=== PATIENT | female | born 1980 | race Caucasian/White ===

== ENCOUNTER → 2016-07-26 | Outpatient (CLI) | payer BC ==
[~2016-07-26] MED LIST: /CELE20CA PO; /CIPR75TA; /DULO30CA PO; /ESOM40CA PO; /LOR25TA PO; ALBUTEROL LIQ INH; AMIT25TA PO; AMRIX; CYMB1CAP PO; DEXILANT PO; FIORTAB PO; FLAG500T; FLECTOR1.3 EXT; HYDR25TA6 PO; HYOSCYAMINE SULFATE OR; HYOSPOW PO; IBUP600T OR; KEPP250T PO; KLOR10TA PO; LUPRON INJECTION; MAXA10TA17 OR; MAXALT; METH-442 PO; MIRALEX PO; MOBI15TA PO; MULTIVIT PO; NEUR600T PO; OXYBPOW10 PO; PAME50CA PO; PAXI10TA; POTA20EL PO; PREG50CA; PREG50CA PO; PRIL40CA PO; PROP60TA; PROP80CA OR; PROV90AE; PROZ20CA11 PO; TOPI50TA; TOPI50TA OR; VICO5TAB; VIT D 2000 PO; VITAMIN D50000 UNT; ZANTTAB9 PO; ZONI25CA2 PO; [UNRECOGNIZED DRUG - CODE] OR; [UNRECOGNIZED DRUG - OTHER] PO; [UNRECOGNIZED DRUG - OTHER] PO; bentyl OR; detrol OR; maxalt OR; vitamin D OR
[2016-07-26 13:03] LABS: ANION GAP 5 MEQ/L (8-16); BLOOD UREA NITROGEN 9 MG/DL (7-18); CALCIUM LEVEL 8.8 MG/DL (8.5-10.1); CARBON DIOXIDE LEVEL 29 MEQ/L (21-32); CHLORIDE LEVEL 105 MEQ/L (98-107); CHOLESTEROL LEVEL 219 MG/DL (<200); CREATININE FOR GFR 0.84 MG/DL (0.55-1.02); GLOMERULAR FILTRATION RATE > 60.0 (>60); GLUCOSE, FASTING 95 MG/DL (70-105); POTASSIUM SERUM 3.9 MEQ/L (3.5-5.1); SODIUM LEVEL 139 MEQ/L (136-145); TRIGLYCERIDES LEVEL 193 MG/DL (<150)
== END ==
LOC: M LAB 11:55
PROVIDERS: ATTEND Physician Assistant Medical
DX: E78.5 Hyperlipidemia, unspecified (principal); E55.9 Vitamin D deficiency, unspecified; I10 Essential (primary) hypertension

== ENCOUNTER → 2016-09-30 | Day surgery (SDC) | payer BC ==
[~2016-09-30] VITALS: Ht 157.5 cm; Wt 83.9 kg
[~2016-09-30] MED LIST changes: +ACETAMINOPHEN 650 MG SUPP As Ordered ONE; +ACETAMINOPHEN 650 MG SUPP PR ONE; +CIPR500T3 PO; +DITR1TAB2 PO; +EPIP0.3I2 IM; +FIOR1CAP PO; +IBUP80TA PO; +IBUPROFEN 800 MG TAB PO SCH; +LIDOCAINE 2% INJ 100 MG/5 ML SDV (FOR ANES.) As Ordered ONE; +LIDOCAINE W/EPINEPHRINE 1% 20ML VIAL As Ordered ONE; +LR 1,000 ML IV ONE; +LR 1,000 ML IV SCH; +MACR100C3 PO; +METOCLOPRAMIDE INJ 10MG/2ML VIAL (J2765) IV PRN; +METR500T10 PO; +MIDAZOLAM INJ 2 MG/2 ML VIAL (J2250) As Ordered ONE; +MORPHINE 2 MG/ML 1ML SYRINGE IV PRN; +NITROFURANTOIN (MACROBID) 100 MG CAP PO ONE; +NORCOTAB PO; +ONDANSETRON 4MG/2ML VIAL (J2405) As Ordered ONE; +ONDANSETRON 4MG/2ML VIAL (J2405) IV PRN; +PERCOCET 5MG/325MG TAB PO PRN; +PROA1AER INH; +PROPOFOL 200 MG/20 ML VIAL As Ordered ONE; +PROPOFOL 500 MG/50 ML VIAL As Ordered ONE; +RANI150T PO; +ROCURONIUM BROMIDE 50 MG/5 ML VIAL As Ordered ONE; +TIZA2CAP3 PO; +VITA100037 PO; +ePHEDrine SULFATE 25 MG/5 ML(5MG/ML) SYRINGE As Ordered ONE; +fentaNYL 100 MCG/2 ML INJECTION (J3010) As Ordered ONE; +fentaNYL 100 MCG/2 ML INJECTION (J3010) IV PRN
[2016-09-30 10:10] LABS: MEAN CORPUSCULAR HEMOGLOBIN 28.2 pg (27.0-33.0); MEAN CORPUSCULAR HGB CONC 33.4 g/dl (32.0-36.5); MEAN CORPUSCULAR VOLUME 84.4 fl (80.0-96.0); RED CELL DISTRIBUTION WIDTH 13.5 % (11.5-14.5); WHITE BLOOD COUNT 8.1 K/mm3 (4.0-10.0)
[2016-09-30 10:21] LABS: ANION GAP 6 MEQ/L (8-16); BLOOD UREA NITROGEN 6 MG/DL (7-18); CALCIUM LEVEL 9.1 MG/DL (8.5-10.1); CARBON DIOXIDE LEVEL 29 MEQ/L (21-32); CHLORIDE LEVEL 106 MEQ/L (98-107); CREATININE FOR GFR 0.86 MG/DL (0.55-1.02); GLOMERULAR FILTRATION RATE > 60.0 (>60); GLUCOSE, FASTING 99 MG/DL (70-105); POTASSIUM SERUM 4.2 MEQ/L (3.5-5.1); SODIUM LEVEL 141 MEQ/L (136-145)
[2016-09-30] MEDS: PERCOCET 5MG/325MG TAB PO PRN ×4 (14:25→20:30)
[2016-09-30 21:00] VITALS: BP 106/64
--- NOTE | 2016-09-30 21:40 | RO ---
DATE OF PROCEDURE: 09/30/2016 Estefani is a 36-year-old female with a history of stress urinary incontinence. After counseling a decision was made for tension-free vaginal taping via an obturator approach and a cystoscopy. PREOPERATIVE DIAGNOSIS: Stress urinary incontinence. POSTOPERATIVE DIAGNOSIS: Stress urinary incontinence. PROCEDURE: 1. Tension-free vaginal taping via an obturator approach. 2. Cystoscopy. SURGEON: Bry Giron DO RESIDENTIAL GLAZIER: ANESTHESIA: Spinal. COMPLICATIONS: None ESTIMATED BLOOD LOSS: Less than 20 mL. DESCRIPTION OF PROCEDURE: After obtaining informed consent the patient was taken to the operating room where spinal anesthetic was found to be adequate. She was then draped and prepped in the usual sterile fashion in dorsal lithotomy position. At this point, a Camara catheter was placed in the bladder for drainage. We then placed a line at the level of the urethral meatus and the second line parallel to that line 2 cm above the line was made and exit point for the TVT-O device was marked 2 cm away from the groin area. It was done in similar fashion. At this point, 1% lidocaine diluted with saline was used for pain control and hydrodissection at the site. We then placed two Allis clamp approximately 2-3 cm below the urethral meatus. Then, the area was infiltrated with lidocaine. A 5 mm incision was made using Metzenbaum at a 45 degrees angle. The obturator foramen was punctured. The wing guide of the TVT-O device was inserted and the TVT-O device on the right side was inserted and exited at the predetermined lilibeth. A cystoscopy was then performed. No evidence of any bladder injury or urethral injury noted. At this point, the introducer was removed. The opposite side was done in similar fashion after draining the bladder. The bladder was then retrograde filled to approximately 300 to 400 mL of normal saline. The tension-free vaginal tape was adjusted with the patient coughing. After proper results was noted, the plastic sheath on the tension-free vaginal tape was removed and the excess tape was cut away. This was done on both sides. The vaginal mucosa incision was closed with a [id number] of #2-0 Vicryl suture and the exit point at the lateral side was closed using Dermabond. Good hemostasis noted. Bladder completely emptied out and the patient was transferred to the recovery room in stable condition.
== END | disposition home or self-care (01) ==
LOC: M SDC 09:39
PROVIDERS: ATTEND Obstetrics & Gynecology
DX: N39.3 Stress incontinence (female) (male) (principal); K44.9 Diaphragmatic hernia without obstruction or gangrene; K21.9 Gastro-esophageal reflux disease without esophagitis; M79.7 Fibromyalgia; J45.909 Unspecified asthma, uncomplicated; Z79.899 Other long term (current) drug therapy; Z88.0 Allergy status to penicillin; Z91.040 Latex allergy status; E73.9 Lactose intolerance, unspecified
CPT/HCPCS: 36415; 57288; 80048; 85027; 86850; 86900; 86901; C1771; J2250; J2405; J3010

== ENCOUNTER 2016-10-07 12:27 | Emergency (ER) | payer BC ==
[~2016-10-07] VITALS: Ht 157.5 cm; Wt 81.6 kg
[~2016-10-07 12:27] MED LIST changes: -ACETAMINOPHEN 650 MG SUPP As Ordered ONE; -ACETAMINOPHEN 650 MG SUPP PR ONE; -CIPR500T3 PO; -IBUPROFEN 800 MG TAB PO SCH; -LIDOCAINE 2% INJ 100 MG/5 ML SDV (FOR ANES.) As Ordered ONE; -LIDOCAINE W/EPINEPHRINE 1% 20ML VIAL As Ordered ONE; -LR 1,000 ML IV ONE; -LR 1,000 ML IV SCH; -METOCLOPRAMIDE INJ 10MG/2ML VIAL (J2765) IV PRN; -METR500T10 PO; -MIDAZOLAM INJ 2 MG/2 ML VIAL (J2250) As Ordered ONE; -MORPHINE 2 MG/ML 1ML SYRINGE IV PRN; -NITROFURANTOIN (MACROBID) 100 MG CAP PO ONE; -NORCOTAB PO; -ONDANSETRON 4MG/2ML VIAL (J2405) As Ordered ONE; -ONDANSETRON 4MG/2ML VIAL (J2405) IV PRN; -PERCOCET 5MG/325MG TAB PO PRN; -PROPOFOL 200 MG/20 ML VIAL As Ordered ONE; -PROPOFOL 500 MG/50 ML VIAL As Ordered ONE; -ROCURONIUM BROMIDE 50 MG/5 ML VIAL As Ordered ONE; -ePHEDrine SULFATE 25 MG/5 ML(5MG/ML) SYRINGE As Ordered ONE; -fentaNYL 100 MCG/2 ML INJECTION (J3010) As Ordered ONE; -fentaNYL 100 MCG/2 ML INJECTION (J3010) IV PRN
[2016-10-07] MEDS ORDERED: ONDANSETRON 4MG/2ML VIAL (J2405) IV ONE (13:45)
[2016-10-07] MEDS ORDERED: NS 1,000 ML IV ONE (13:45)
--- NOTE | 2016-10-07 13:50 | ED PDOC ---
Post-Departure Follow-Up Patient presents to the ED for evaluation of LLQ abdominal pain that has been ongoing since her bladder suspension surgery last Monday. She states that she first noted the pain in her left hip and was told that it was due to being in stirrups for the surgery. The pain then moved to her LLQ, where it has been ever since. She states that the pain has gotten progressively worse and is now diffuse (but still the most severe in LLQ). She was seen by Dr Giron this morning, a UA was obtained and she was told it was negative, he then sent her to the ED for further evaluation. The remainder of her H&P and ROS are as noted on her T-sheet. IV saline lock established and liter NS bolus ordered for hydration. CBC, BMP, UA, lactic acid ordered for evaluation. A flat and upright abdomen x-ray was ordered to evaluate for free air. If negative a CT abd/pelvis, w/ IV and PO contrast will be ordered. Morphine and Zofran ordered for pain and nausea control. SHAWNEE PARKER. [facility] Oct 07, 2016 13:50
[2016-10-07] MEDS: MORPHINE 4 MG/ML 1ML SYRINGE IV PRN ×2 (14:05→14:42)
[2016-10-07 14:12] LABS: BASO # 0.1 K/mm3 (0.0-0.2); BASO % 0.5 % (0.0-1.0); EOS # 0.4 K/mm3 (0.0-0.50); EOS % 2.2 % (0.0-3.0); LARGE UNSTAINED CELL # 0.2 K/mm3 (0.0-0.4); LARGE UNSTAINED CELL % 1.3 % (0.0-4.0); LYMPH # 2.4 K/mm3 (1.5-4.5); LYMPH % 14.9 % (24.0-44.0); MEAN CORPUSCULAR HEMOGLOBIN 27.9 pg (27.0-33.0); MEAN CORPUSCULAR VOLUME 84.4 fl (80.0-96.0); MONO # 0.7 K/mm3 (0.0-0.8); MONO % 4.2 % (0.0-5.0); NEUTROPHILS # 12.3 K/mm3 (1.8-7.7); NEUTROPHILS % 76.9 % (36.0-66.0); PLATELET COUNT, AUTOMATED 301 k/mm3 (150-450); RED CELL DISTRIBUTION WIDTH 13.2 % (11.5-14.5)
[2016-10-07 14:27] LABS: ANION GAP 6 MEQ/L (8-16); BLOOD UREA NITROGEN 10 MG/DL (7-18); CALCIUM LEVEL 9.3 MG/DL (8.5-10.1); CARBON DIOXIDE LEVEL 27 MEQ/L (21-32); CHLORIDE LEVEL 104 MEQ/L (98-107); CREATININE FOR GFR 0.89 MG/DL (0.55-1.02); GLOMERULAR FILTRATION RATE > 60.0 (>60); GLUCOSE, FASTING 88 MG/DL (70-105); POTASSIUM SERUM 3.6 MEQ/L (3.5-5.1); SODIUM LEVEL 137 MEQ/L (136-145)
--- NOTE | 2016-10-07 14:58 | REP ---
ABDOMEN, FLAT UPRIGHT AP CHEST, FOUR VIEWS: HISTORY: Abdominal pain. Air is present in small and large intestine. There are no air fluid levels or dilated loops of intestine. There is no pneumoperitoneum. Surgical clips are present in the right upper quadrant. The lungs are clear. IMPRESSION: Nonspecific bowel gas pattern. Signed by Jasvir Reynolds MD 10/07/2016 03:04 P
--- NOTE | 2016-10-07 15:11 | ED PDOC ---
Post-Departure Follow-Up No free air noted on KUB/upright; CT abd/pelvis with IV/PO contrast ordered for further evaluation SHAWNEE PARKER SOFTWARE COMPUTER SPECIALIST Oct 07, 2016 15:11
[2016-10-07] MEDS ORDERED: GASTROGRAFIN SOLUTION 30ML (Q9963) PO ONE ×2 (15:30→16:00)
--- NOTE | 2016-10-07 15:30 | ED PDOC ---
Post-Departure Follow-Up Patient states her pain is tolerable at this time. Drinking her oral contrast and tolerating it. SHAWNEE PARKER. [facility] Oct 07, 2016 15:30
[2016-10-07] MEDS ORDERED: ISOVUE-370 76% 100ML VIAL (Q9967) As Ordered ONE (16:42)
--- NOTE | 2016-10-07 17:47 | REP ---
CT of the abdomen and pelvis with IV and oral contrast: Comparison is 01/17/2013. The patient has history of diverticulitis, cholecystectomy, bladder. Procedure, partial hysterectomy and umbilical hernia. The visualized lung mejia are unremarkable. The hepatic parenchyma is homogeneous and unremarkable. There are surgical clips in the gallbladder fossa. The pancreas and spleen are normal size and unremarkable. The adrenals and kidneys are unremarkable. The abdominal aorta is unremarkable. There is no bowel distension. The bowel contrast has reached proximal small bowel loops. Pelvis: The appendix has a normal appearance. The vaginal cuff is unremarkable. The ovaries are unchanged from a prior CT of the pelvis of 03/29/2010. There is no ascites. There are diverticula in the sigmoid colon. There is pericolonic inflammation of the sigmoid colon without pericolonic abscess compatible with diverticulitis. There is no ascites or adenopathy. Impression: Findings are compatible with sigmoid colon diverticulitis. There is no pneumoperitoneum, ascites or adenopathy. Signed by Malcom Simms MD 10/07/2016 05:39 P
--- NOTE | 2016-10-07 17:52 | ED PDOC ---
Post-Departure Follow-Up Discussed CT results and discharge plan with the patient including prescriptions , pain management, hydration, follow-up and worrisome signs to return to the ED for. Questions answered. Patient states understanding to the instructions. SHAWNEE PARKER. [employer] Oct 07, 2016 17:52
[2016-10-07] MEDS ORDERED: NORCOTAB PO (17:58)
[2016-10-07] MEDS ORDERED: METR500T10 PO (17:58)
[2016-10-07] MEDS ORDERED: CIPR500T3 PO (17:58)
[2016-10-07] MEDS ORDERED: metroNIDAZOLE (FLAGYL) 500 MG TAB PO ONE (18:00)
[2016-10-07] MEDS ORDERED: CIPROFLOXACIN 500 MG TAB PO ONE (18:00)
[2016-10-07 18:01] VITALS: BP 114/60
== END 2016-10-07 18:23 | disposition home or self-care (01) ==
LOC: M ED 14:17
DX: K57.90 Diverticulosis of intestine, part unspecified, without perforation or abscess without bleeding (principal); I10 Essential (primary) hypertension; E78.5 Hyperlipidemia, unspecified; K58.9 Irritable bowel syndrome, unspecified; K44.9 Diaphragmatic hernia without obstruction or gangrene; M79.7 Fibromyalgia; N80.9 Endometriosis, unspecified; E28.2 Polycystic ovarian syndrome; E04.1 Nontoxic single thyroid nodule; Z90.79 Acquired absence of other genital organ(s); Z87.448 Personal history of other diseases of urinary system; Z79.899 Other long term (current) drug therapy; Z88.0 Allergy status to penicillin; Z88.5 Allergy status to narcotic agent; Z91.040 Latex allergy status; Z91.09 Other allergy status, other than to drugs and biological substances; Z91.011 Allergy to milk products
CPT/HCPCS: 74022; 74177; 80048; 81001; 83605; 85025; 96361; 96374; 96375; 96376; 99284; J2405; Q9963; Q9967

== ENCOUNTER 2017-04-05 09:30 | Day surgery (SDC) | payer BC ==
[~2017-04-05] VITALS: Ht 157.5 cm; Wt 78.0 kg
[~2017-04-05 09:30] MED LIST changes: +CIPR500T3 PO; -MACR100C3 PO; +MACR100C43 PO; +METR1TAB66 PO; +NORCOTAB PO; -PROA1AER INH; +PROAAER10 INH; -VITA100037 PO; +VITA100067 PO
[2017-04-05] MEDS ORDERED: NS 1,000 ML IV ONE (10:15)
[2017-04-05] MEDS ORDERED: LIDOCAINE 2% INJ 100 MG/5 ML SDV (FOR ANES.) As Ordered ONE (10:29)
[2017-04-05] MEDS ORDERED: PROPOFOL 200 MG/20 ML VIAL As Ordered ONE (10:29)
--- NOTE | 2017-04-05 10:53 | ROOR ---
Patient Name: Alexandrea Posadas Procedure Date: 04/05/2017 10:21 AM Date of : 1980 Age: 36 Room: [facility] Gender: Female Note Status: Finalized Procedure: Colonoscopy Indications: Abdominal pain in the left lower quadrant, Abnormal CT of the GI tract, Suspected diverticulitis Providers: Hebert Wills MD Referring MD: RANDY HARE MD Requesting Provider: Medicines: Monitored Anesthesia Care Complications: No immediate complications. Procedure: Pre-Anesthesia Assessment: - Prior to the procedure, a History and Physical was performed, and patient medications and allergies were reviewed. The patient is competent. The risks and benefits of the procedure and the sedation options and risks were discussed with the patient. All questions were answered and informed consent was obtained. Patient identification and proposed procedure were verified by the physician, the nurse and the anesthesiologist in the endoscopy suite. Mental Status Examination: alert and oriented. Airway Examination: normal oropharyngeal airway and neck mobility. Respiratory Examination: clear to auscultation. CV Examination: normal. Prophylactic Antibiotics: The patient does not require prophylactic antibiotics. Prior Anticoagulants: The patient has taken no previous anticoagulant or antiplatelet agents. ASA Grade Assessment: II - A patient with mild systemic disease. After reviewing the risks and benefits, the patient was deemed in satisfactory condition to undergo the procedure. The anesthesia plan was to use monitored anesthesia care (MAC). Immediately prior to administration of medications, the patient was re-assessed for adequacy to receive sedatives. The heart rate, respiratory rate, oxygen saturations, blood pressure, adequacy of pulmonary ventilation, and response to care were monitored throughout the procedure. The physical status of the patient was re-assessed after the procedure. The Colonoscope was introduced through the anus and advanced to the terminal ileum, with identification of the appendiceal orifice and IC valve. The colonoscopy was performed without difficulty. The patient tolerated the procedure well. The quality of the bowel preparation was adequate to identify polyps. Findings: The perianal and digital rectal examinations were normal. Scattered small-mouthed diverticula were found in the sigmoid colon, descending colon, transverse colon, ascending colon and cecum. No evident mucosal inflammation, diverticular inflammation. The entire examined colon appeared normal on direct and retroflexion views. Impression: - Moderate diverticulosis in the sigmoid colon, in the descending colon, in the transverse colon, in the ascending colon and in the cecum. No evident mucosal inflammation, diverticular inflammation. - The entire examined colon is normal on direct and retroflexion views. - No specimens collected. Recommendation: - Discharge patient to home (ambulatory). - High fiber diet indefinitely. - Use original regular Metamucil one teaspoon PO BID indefinitely. Hebert Wills MD Hebert Wills MD 04/05/2017 10:53:09 AM This report has been signed electronically. Number of Addenda: 0 Note Initiated On: 04/05/2017 10:21 AM Estimated Blood Loss: Estimated blood loss: none.
[2017-04-05 11:25] VITALS: BP 129/88
== END 2017-04-05 11:52 | disposition home or self-care (01) ==
LOC: M OPP 09:30
PROVIDERS: ATTEND Surgery
DX: R93.3 Abnormal findings on diagnostic imaging of other parts of digestive tract (principal); R10.32 Left lower quadrant pain; K57.32 Diverticulitis of large intestine without perforation or abscess without bleeding; R19.5 Other fecal abnormalities; R11.2 Nausea with vomiting, unspecified; K64.8 Other hemorrhoids; K57.30 Diverticulosis of large intestine without perforation or abscess without bleeding; R00.8 Other abnormalities of heart beat; I10 Essential (primary) hypertension; E78.5 Hyperlipidemia, unspecified; R01.1 Cardiac murmur, unspecified; E04.1 Nontoxic single thyroid nodule; Z87.19 Personal history of other diseases of the digestive system; K44.9 Diaphragmatic hernia without obstruction or gangrene; K58.9 Irritable bowel syndrome, unspecified; R12 Heartburn; K21.9 Gastro-esophageal reflux disease without esophagitis; M51.9 Unspecified thoracic, thoracolumbar and lumbosacral intervertebral disc disorder; M54.30 Sciatica, unspecified side; M79.7 Fibromyalgia; G43.909 Migraine, unspecified, not intractable, without status migrainosus; R56.9 Unspecified convulsions; J45.909 Unspecified asthma, uncomplicated; R06.02 Shortness of breath; R32 Unspecified urinary incontinence; Z88.0 Allergy status to penicillin; Z88.8 Allergy status to other drugs, medicaments and biological substances; Z91.040 Latex allergy status; Z91.048 Other nonmedicinal substance allergy status; Z91.011 Allergy to milk products; Z79.899 Other long term (current) drug therapy; Z80.51 Family history of malignant neoplasm of kidney

== ENCOUNTER → 2017-06-27 | Outpatient (CLI) | payer OTHER | LOC: M PAIN 11:15 | DX: M54.40 Lumbago with sciatica, unspecified side (principal); M53.3 Sacrococcygeal disorders, not elsewhere classified; J45.909 Unspecified asthma, uncomplicated; G43.909 Migraine, unspecified, not intractable, without status migrainosus; T82.0 Mechanical complication of heart valve prosthesis; R01.1 Cardiac murmur, unspecified; Z79.899 Other long term (current) drug therapy; Z79.891 Long term (current) use of opiate analgesic; Z91.040 Latex allergy status; Z91.048 Other nonmedicinal substance allergy status; Z88.0 Allergy status to penicillin; Z88.8 Allergy status to other drugs, medicaments and biological substances | CPT/HCPCS: G0463 ==

== ENCOUNTER → 2017-07-26 | Outpatient (CLI) | payer OTHER | LOC: M PAIN 08:45 | DX: M54.40 Lumbago with sciatica, unspecified side (principal); M53.3 Sacrococcygeal disorders, not elsewhere classified; G89.29 Other chronic pain; R01.1 Cardiac murmur, unspecified; E78.00 Pure hypercholesterolemia, unspecified; J45.909 Unspecified asthma, uncomplicated; G43.909 Migraine, unspecified, not intractable, without status migrainosus; M79.7 Fibromyalgia; Z79.899 Other long term (current) drug therapy; Z88.0 Allergy status to penicillin; Z88.5 Allergy status to narcotic agent; Z91.040 Latex allergy status; Z91.09 Other allergy status, other than to drugs and biological substances | CPT/HCPCS: G0463 ==

== ENCOUNTER → 2017-08-31 | Outpatient (CLI) | payer BC ==
[2017-08-31 10:59] LABS: BASO % 0.5 % (0.0-1.0); EOS # 0.2 10^3/uL (0.0-0.50); EOS % 1.9 % (0.0-3.0); HEMATOCRIT 48.2 % (36.0-47.0); HEMOGLOBIN 15.4 g/dl (12.0-15.5); IMMATURE GRANULOCYTE % 0.2 % (0-3.0); MEAN CORPUSCULAR HEMOGLOBIN 26.8 pg (27.0-33.0); MONO # 0.4 10^3/uL (0.0-0.8); NEUTROPHILS # 5.7 10^3/uL (1.8-7.7); NEUTROPHILS % 68.4 % (36.0-66.0); PLATELET COUNT, AUTOMATED 253 10^3/uL (150-450); RED BLOOD COUNT 5.74 10^6/uL (4.00-5.40); RED CELL DISTRIBUTION WIDTH 13.2 % (11.5-14.5); WHITE BLOOD COUNT 8.4 10^3/uL (4.0-10.0)
[2017-08-31 11:26] LABS: ANION GAP 6 MEQ/L (8-16); BLOOD UREA NITROGEN 10 MG/DL (7-18); CALCIUM LEVEL 9.2 MG/DL (8.5-10.1); CARBON DIOXIDE LEVEL 30 MEQ/L (21-32); CHLORIDE LEVEL 106 MEQ/L (98-107); CREATININE FOR GFR 0.91 MG/DL (0.55-1.30); FREE T3 2.9 PG/ML (2.2-4.0); FREE T4 1.17 NG/DL (0.76-1.46); GLOMERULAR FILTRATION RATE > 60.0 (>60); GLUCOSE, FASTING 88 MG/DL (70-100); MAGNESIUM LEVEL 2.4 MG/DL (1.8-2.4); POTASSIUM SERUM 4.4 MEQ/L (3.5-5.1); SODIUM LEVEL 142 MEQ/L (136-145)
[2017-09-01 08:53] LABS: THYROGLOBULIN ANTIBODY 29.6 U/ML (<60.0); THYROID PEROXIDASE ANTIBODY 42.4 U/ML (<60.0)
[2017-09-02 00:07] LABS: THYROID BINDING GLOBULIN 20 ug/mL (13-39)
== END ==
LOC: M LAB 09:50
DX: R00.2 Palpitations (principal)
CPT/HCPCS: 83735

== ENCOUNTER → 2017-09-06 | Outpatient (CLI) | payer OTHER | LOC: M PAIN 09:15 | DX: M54.40 Lumbago with sciatica, unspecified side (principal); M53.3 Sacrococcygeal disorders, not elsewhere classified; G89.29 Other chronic pain; R01.1 Cardiac murmur, unspecified; E78.00 Pure hypercholesterolemia, unspecified; J45.909 Unspecified asthma, uncomplicated; G43.909 Migraine, unspecified, not intractable, without status migrainosus; M79.7 Fibromyalgia; Z79.899 Other long term (current) drug therapy; Z88.0 Allergy status to penicillin; Z88.5 Allergy status to narcotic agent; Z91.040 Latex allergy status; Z91.09 Other allergy status, other than to drugs and biological substances | CPT/HCPCS: G0463 ==

== ENCOUNTER → 2017-10-23 | Outpatient (REF) | payer OTHER ==
[2017-10-23 19:32] LABS: APPEARANCE, URINE HAZY (CLEAR); BACTERIA, URINE AUTO NEGATIVE (NEGATIVE); BILIRUBIN, URINE AUTO NEGATIVE (NEGATIVE); BLOOD, URINE BLOOD NEGATIVE (NEGATIVE); COLOR, URINE YELLOW (YELLOW); GLUCOSE, URINE (UA) AUTO NEGATIVE (NEGATIVE); KETONE, URINE AUTO NEGATIVE (NEGATIVE); LEUKOCYTE ESTERASE, URINE AUTO 2+ (NEGATIVE); MUCUS, URINE SMALL (NEGATIVE); NITRITE, URINE AUTO NEGATIVE (NEGATIVE); PROTEIN, URINE AUTO NEGATIVE (NEGATIVE); RBC, URINE AUTO 1 /HPF (0-3); SPECIFIC GRAVITY URINE AUTO 1.024 (1.002-1.035); SQUAMOUS EPITHELIAL CELL UR AU 3 /HPF (0-6); UROBILINOGEN, URINE AUTO 0.2 mg/dL (0.0-2.0); WBC, URINE AUTO 30 /HPF (0-3)
== END ==
LOC: M LAB REF 16:40
DX: N39.0 Urinary tract infection, site not specified (principal)

== ENCOUNTER → 2017-12-26 | Outpatient (CLI) | payer OTHER ==
[~2017-12-26] MED LIST changes: -/CELE20CA PO; -/CIPR75TA; -/DULO30CA PO; -/ESOM40CA PO; -/LOR25TA PO; -ALBUTEROL LIQ INH; -AMIT25TA PO; -AMRIX; -CIPR500T3 PO; -CYMB1CAP PO; -DEXILANT PO; -DITR1TAB2 PO; -EPIP0.3I2 IM; -FIOR1CAP PO; -FIORTAB PO; -FLAG500T; -FLECTOR1.3 EXT; -HYDR25TA6 PO; -HYOSCYAMINE SULFATE OR; -HYOSPOW PO; -IBUP600T OR; -IBUP80TA PO; +ISOVUE-M 300 61% 15ML VIAL (Q9967) As Ordered; -KEPP250T PO; -KLOR10TA PO; +LIDOCAINE 1% SDV INJ 30 ML VIAL As Ordered; -LUPRON INJECTION; -MACR100C43 PO; -MAXA10TA17 OR; -MAXALT; -METH-442 PO; -METR1TAB66 PO; -MIRALEX PO; -MOBI15TA PO; -MULTIVIT PO; -NEUR600T PO; -NORCOTAB PO; -OXYBPOW10 PO; -PAME50CA PO; -PAXI10TA; -POTA20EL PO; -PREG50CA; -PREG50CA PO; -PRIL40CA PO; -PROAAER10 INH; -PROP60TA; -PROP80CA OR; -PROV90AE; -PROZ20CA11 PO; -RANI150T PO; -TIZA2CAP3 PO; -TOPI50TA; -TOPI50TA OR; -VICO5TAB; -VIT D 2000 PO; -VITA100067 PO; -VITAMIN D50000 UNT; -ZANTTAB9 PO; -ZONI25CA2 PO; -[UNRECOGNIZED DRUG - CODE] OR; -[UNRECOGNIZED DRUG - OTHER] PO; -[UNRECOGNIZED DRUG - OTHER] PO; -bentyl OR; -detrol OR; +diazePAM 5 MG TAB As Ordered; -maxalt OR; +methylPREDNISolone SUSP 40 MG/ML (DEPO-medrol) VIAL (J1030) As Ordered; +oxyCODONE 5MG TAB As Ordered; -vitamin D OR
== END ==
LOC: M PAIN 08:45
DX: M51.16 Intervertebral disc disorders with radiculopathy, lumbar region (principal); R01.1 Cardiac murmur, unspecified; E78.00 Pure hypercholesterolemia, unspecified; J45.909 Unspecified asthma, uncomplicated; G43.909 Migraine, unspecified, not intractable, without status migrainosus; M79.7 Fibromyalgia; M54.2 Cervicalgia; Z79.891 Long term (current) use of opiate analgesic; Z79.899 Other long term (current) drug therapy; Z88.0 Allergy status to penicillin; Z88.5 Allergy status to narcotic agent; Z91.040 Latex allergy status; Z91.048 Other nonmedicinal substance allergy status
CPT/HCPCS: J1030

== ENCOUNTER → 2018-01-23 | Outpatient (CLI) | payer OTHER | LOC: M PAIN 13:15 | DX: M51.16 Intervertebral disc disorders with radiculopathy, lumbar region (principal); J45.909 Unspecified asthma, uncomplicated; G43.909 Migraine, unspecified, not intractable, without status migrainosus; M79.7 Fibromyalgia; E78.00 Pure hypercholesterolemia, unspecified; R01.1 Cardiac murmur, unspecified; Z79.891 Long term (current) use of opiate analgesic; Z79.899 Other long term (current) drug therapy; Z88.0 Allergy status to penicillin; Z88.5 Allergy status to narcotic agent; Z91.040 Latex allergy status; Z91.09 Other allergy status, other than to drugs and biological substances | CPT/HCPCS: G0463 ==

== ENCOUNTER 2018-02-27 19:26 | Emergency (ER) | payer OTHER | END 2018-02-27 20:47 | disposition home or self-care (01) | LOC: M ED 19:26 | DX: S39.012A Strain of muscle, fascia and tendon of lower back, initial encounter (principal); M54.16 Radiculopathy, lumbar region; Y04.8XXA Assault by other bodily force, initial encounter; Y92.89 Other specified places as the place of occurrence of the external cause; Y99.0 Civilian activity done for income or pay; M79.7 Fibromyalgia; K21.9 Gastro-esophageal reflux disease without esophagitis; K58.9 Irritable bowel syndrome, unspecified; Z88.0 Allergy status to penicillin; Z88.5 Allergy status to narcotic agent; Z91.040 Latex allergy status; Z91.011 Allergy to milk products; Z91.048 Other nonmedicinal substance allergy status; Z79.899 Other long term (current) drug therapy | CPT/HCPCS: 99282 ==

== ENCOUNTER → 2018-06-17 | Outpatient (REF) | payer BC ==
[~2018-06-17] MED LIST changes: +/CELE20CA PO; +/CIPR75TA; +/DULO30CA PO; +/ESOM40CA PO; +/LOR25TA PO; +ALBUTEROL LIQ INH; +AMIT25TA PO; +AMRIX; +CIPR500T3 PO; +CYMB1CAP PO; +DEXILANT PO; +DICY10CA13 PO; +DITR1TAB2 PO; +EPIP0.3I2 IM; +FIOR1CAP PO; +FIORTAB PO; +FLAG500T; +FLECTOR1.3 EXT; +HYDR-3713 PO; +HYDR25TA6 PO; +HYOSCYAMINE SULFATE OR; +HYOSPOW PO; +IBUP600T OR; +IBUP80TA PO; -ISOVUE-M 300 61% 15ML VIAL (Q9967) As Ordered; +KEPP250T PO; +KLOR10TA PO; -LIDOCAINE 1% SDV INJ 30 ML VIAL As Ordered; +LUPRON INJECTION; +MACR100C43 PO; +MAXA10TA17 OR; +MAXALT; +METH-442 PO; +METR-201 PO; +MIRALEX PO; +MOBI15TA PO; +MULTIVIT PO; +NEUR600T PO; +NORCOTAB PO; +OXYB5TAB10 PO; +OXYBPOW10 PO; +PAME50CA PO; +PAXI10TA; +POTA20EL PO; +PREG50CA; +PREG50CA PO; +PRIL40CA PO; +PROAAER10 INH; +PROP60TA; +PROP80CA OR; +PROV90AE; +PROZ20CA11 PO; +RANI150T PO; +TIZA2CAP PO; +TIZA6CAP PO; +TOPA1TAB PO; +TOPI50TA; +TOPI50TA OR; +VICO5TAB; +VIT D 2000 PO; +VITA100067 PO; +VITA200016 PO; +VITAMIN D50000 UNT; +ZANTTAB9 PO; +ZONI25CA2 PO; +[UNRECOGNIZED DRUG - CODE] OR; +[UNRECOGNIZED DRUG - OTHER] PO; +[UNRECOGNIZED DRUG - OTHER] PO; +bentyl OR; +detrol OR; -diazePAM 5 MG TAB As Ordered; +maxalt OR; -methylPREDNISolone SUSP 40 MG/ML (DEPO-medrol) VIAL (J1030) As Ordered; -oxyCODONE 5MG TAB As Ordered; +vitamin D OR
[2018-06-17 16:50] LABS: INFLUENZA A AMPLIFICATION POSITIVE (NEGATIVE); INFLUENZA B AMPLIFICATION NEGATIVE (NEGATIVE)
== END ==
LOC: M LAB REF 10:15
PROVIDERS: ATTEND Physician Assistant Medical
DX: B34.9 Viral infection, unspecified (principal)

== ENCOUNTER → 2018-07-16 | Outpatient (REF) | payer BC | LOC: M LAB REF 12:28 | PROVIDERS: ATTEND Physician Assistant | DX: R35.0 Frequency of micturition (principal) ==

== ENCOUNTER → 2018-09-04 | Outpatient (CLI) | payer BC ==
[~2018-09-04] MED LIST changes: -/CELE20CA PO; -/DULO30CA PO; -/ESOM40CA PO; +CELE1CAP4 PO; +CYMB1CAP5 PO; +HYDR-3715 PO; -METR-201 PO; +METR-265 PO; +NEXI1CAP3 PO; -NORCOTAB PO; -POTA20EL PO; +[UNRECOGNIZED DRUG - CODE] PO
[2018-09-04 13:14] LABS: BASO # 0.1 10^3/uL (0.0-0.2); BASO % 0.5 % (0.0-1.0); EOS # 0.3 10^3/uL (0.0-0.50); EOS % 3.2 % (0.0-3.0); HEMATOCRIT 45.9 % (36.0-47.0); HEMOGLOBIN 14.8 g/dl (12.0-15.5); LYMPH # 2.4 10^3/uL (1.5-4.5); LYMPH % 24.9 % (24.0-44.0); MEAN CORPUSCULAR HGB CONC 32.2 g/dl (32.0-36.5); MEAN CORPUSCULAR VOLUME 86.8 fl (80.0-96.0); MONO # 0.6 10^3/uL (0.0-0.8); MONO % 6.7 % (0.0-5.0); NEUTROPHILS # 6.2 10^3/uL (1.8-7.7); NEUTROPHILS % 64.4 % (36.0-66.0); PLATELET COUNT, AUTOMATED 298 10^3/uL (150-450); RED BLOOD COUNT 5.29 10^6/uL (4.00-5.40); WHITE BLOOD COUNT 9.6 10^3/uL (4.0-10.0)
[2018-09-04 13:36] LABS: ALBUMIN 3.5 GM/DL (3.2-5.2); ALT/SGPT 21 U/L (12-78); BILIRUBIN,TOTAL 0.3 MG/DL (0.2-1.0); BLOOD UREA NITROGEN 12 MG/DL (7-18); C REACTIVE PROTEIN QUANTITATIV 0.78 MG/DL (0.00-0.30); CALCIUM LEVEL 8.8 MG/DL (8.5-10.1); CARBON DIOXIDE LEVEL 30 MEQ/L (21-32); CHLORIDE LEVEL 105 MEQ/L (98-107); CREATININE FOR GFR 0.84 MG/DL (0.55-1.30); GLOMERULAR FILTRATION RATE > 60.0 (>60); GLUCOSE, FASTING 75 MG/DL (70-100); POTASSIUM SERUM 4.3 MEQ/L (3.5-5.1); SODIUM LEVEL 139 MEQ/L (136-145); TOTAL PROTEIN 7.7 GM/DL (6.4-8.2)
== END ==
LOC: M LAB 12:10
PROVIDERS: ATTEND Surgery
DX: K57.32 Diverticulitis of large intestine without perforation or abscess without bleeding (principal)

== ENCOUNTER → 2018-09-10 | Outpatient (CLI) | payer BC ==
[~2018-09-10] MED LIST changes: +GASTROGRAFIN SOLUTION 30ML (Q9963) As Ordered ONE; +ISOVUE-370 76% 100ML VIAL (Q9967) As Ordered ONE
--- NOTE | 2018-09-11 07:41 | REP ---
Clinical: Diverticulitis. Technique: Axial contrast enhanced images from the lung bases to the pubic symphysis using oral (per protocol) and 100 ml Isovue 370 intravenous contrast material with coronal and sagittal re-formations. Comparison: 10/07/2016. Findings: Lung bases are clear. Visualized heart and pericardium normal. Liver, spleen, pancreas, bilateral adrenal glands and kidneys are normal. Evidence of prior cholecystectomy noted. The enteric system including stomach, small, and large bowel is without obstruction or acute inflammatory process. Few scattered colonic and sigmoid diverticula noted without acute diverticulitis. Pelvis demonstrates normal bladder and evidence for prior hysterectomy. No ascites. No free air. No adenopathy. Abdominal aorta and vasculature without aneurysm or dissection. Musculoskeletal structures are intact. Impression: No acute abdominopelvic pathology appreciated. Few scattered colonic/sigmoid diverticula without acute diverticulitis. Prior cholecystectomy and hysterectomy. Electronically Signed by Devin Zavala MD 09/11/2018 07:31 A
== END ==
LOC: M RAD 16:34
PROVIDERS: ATTEND Surgery
DX: K57.32 Diverticulitis of large intestine without perforation or abscess without bleeding (principal)
CPT/HCPCS: 74177; Q9963; Q9967

== ENCOUNTER 2018-10-17 08:31 | Day surgery (SDC) | payer BC ==
[~2018-10-17] VITALS: Ht 157.5 cm; Wt 70.8 kg
[~2018-10-17 08:31] MED LIST changes: +EFFE75CA2 PO; +GABA-843 PO; -GASTROGRAFIN SOLUTION 30ML (Q9963) As Ordered ONE; -ISOVUE-370 76% 100ML VIAL (Q9967) As Ordered ONE; +NS 1,000 ML IV ONE
[2018-10-17] MEDS ORDERED: PROPOFOL 200 MG/20 ML VIAL As Ordered ONE (08:33)
[2018-10-17] MEDS ORDERED: LIDOCAINE 2% INJ 100 MG/5 ML SDV (FOR ANES.) As Ordered ONE (08:33)
--- NOTE | 2018-10-17 09:48 | ROOR ---
Patient Name: Alexandrea Posadas Procedure Date: 10/17/2018 9:24 AM Date of : 1980 Age: 38 Room: [id number] Gender: Female Note Status: Finalized Procedure: Colonoscopy Indications: Abdominal pain in the left lower quadrant, Exclusion of diverticulitis Providers: Hebert Wills MD Referring MD: Judy Hutson MD Requesting Provider: Medicines: Monitored Anesthesia Care Complications: No immediate complications. Procedure: Pre-Anesthesia Assessment: - Prior to the procedure, a History and Physical was performed, and patient medications and allergies were reviewed. The patient is competent. The risks and benefits of the procedure and the sedation options and risks were discussed with the patient. All questions were answered and informed consent was obtained. Patient identification and proposed procedure were verified by the physician, the nurse and the anesthesiologist in the endoscopy suite. Mental Status Examination: alert and oriented. Airway Examination: normal oropharyngeal airway and neck mobility. Respiratory Examination: clear to auscultation. CV Examination: normal. Prophylactic Antibiotics: The patient does not require prophylactic antibiotics. Prior Anticoagulants: The patient has taken no previous anticoagulant or antiplatelet agents. ASA Grade Assessment: II - A patient with mild systemic disease. After reviewing the risks and benefits, the patient was deemed in satisfactory condition to undergo the procedure. The anesthesia plan was to use monitored anesthesia care (MAC). Immediately prior to administration of medications, the patient was re-assessed for adequacy to receive sedatives. The heart rate, respiratory rate, oxygen saturations, blood pressure, adequacy of pulmonary ventilation, and response to care were monitored throughout the procedure. The physical status of the patient was re-assessed after the procedure. The Colonoscope was introduced through the anus and advanced to the cecum, identified by appendiceal orifice and ileocecal valve. The colonoscopy was performed without difficulty. The patient tolerated the procedure well. The quality of the bowel preparation was good. Findings: The perianal and digital rectal examinations were normal. Multiple medium-mouthed diverticula were found in the sigmoid colon, descending colon and transverse colon. There was no evidence of diverticular bleeding. No active inflammation at area of diverticula. Moderate amount of cluster of diverticulosis at sigmoid colon without any architectural changes, luminal narrowing, mild muscle hypertrophy. Scattered diverticula up to transverse colon. Estimated blood loss: none. The entire examined colon appeared normal on direct and retroflexion views. Impression: - Diverticulosis in the sigmoid colon, in the descending colon and in the transverse colon. There was no evidence of diverticular bleeding. - The entire examined colon is normal on direct and retroflexion views. - No specimens collected. Recommendation: - Discharge patient to home (ambulatory). - Return to my office in 2 weeks. Hebert Wills MD Hebert Wills MD 10/17/2018 9:48:05 AM Electronically signed by Hebert Wills MD Number of Addenda: 0 Note Initiated On: 10/17/2018 9:24 AM Estimated Blood Loss: Estimated blood loss: none.
[2018-10-17 10:05] VITALS: BP 116/76
== END 2018-10-17 10:15 | disposition home or self-care (01) ==
LOC: M OPP 08:31
PROVIDERS: ATTEND Surgery
DX: K57.30 Diverticulosis of large intestine without perforation or abscess without bleeding (principal); R10.32 Left lower quadrant pain

== ENCOUNTER → 2018-12-04 | Outpatient (CLI) | payer BC ==
[~2018-12-04] MED LIST changes: -NS 1,000 ML IV ONE
[2018-12-04 12:21] LABS: BASO % 0.4 % (0.0-1.0); EOS # 0.3 10^3/uL (0.0-0.50); EOS % 3.7 % (0.0-3.0); HEMATOCRIT 44.7 % (36.0-47.0); HEMOGLOBIN 14.9 g/dl (12.0-15.5); LYMPH # 2.5 10^3/uL (1.5-4.5); LYMPH % 27.8 % (24.0-44.0); MEAN CORPUSCULAR HEMOGLOBIN 28.8 pg (27.0-33.0); MEAN CORPUSCULAR HGB CONC 33.3 g/dl (32.0-36.5); MEAN CORPUSCULAR VOLUME 86.5 fl (80.0-96.0); MONO # 0.6 10^3/uL (0.0-0.8); MONO % 6.6 % (0.0-5.0); NEUTROPHILS # 5.5 10^3/uL (1.8-7.7); NEUTROPHILS % 61.3 % (36.0-66.0); PLATELET COUNT, AUTOMATED 296 10^3/uL (150-450); RED BLOOD COUNT 5.17 10^6/uL (4.00-5.40)
[2018-12-04 12:43] LABS: ALBUMIN 3.9 GM/DL (3.2-5.2); ALT/SGPT 19 U/L (12-78); BILIRUBIN,TOTAL 0.4 MG/DL (0.2-1.0); BLOOD UREA NITROGEN 12 MG/DL (7-18); CALCIUM LEVEL 9.2 MG/DL (8.5-10.1); CARBON DIOXIDE LEVEL 30 MEQ/L (21-32); CHLORIDE LEVEL 105 MEQ/L (98-107); CREATININE FOR GFR 0.88 MG/DL (0.55-1.30); GLOMERULAR FILTRATION RATE > 60.0 (>60); GLUCOSE, FASTING 87 MG/DL (70-100); POTASSIUM SERUM 4.2 MEQ/L (3.5-5.1); SODIUM LEVEL 140 MEQ/L (136-145); TOTAL PROTEIN 7.5 GM/DL (6.4-8.2)
== END ==
LOC: M LAB 11:36
PROVIDERS: ATTEND Physician Assistant
DX: Z01.810 Encounter for preprocedural cardiovascular examination (principal)

== ENCOUNTER 2018-12-19 08:33 | Inpatient (IN) | payer BC ==
[~2018-12-19] VITALS: Ht 157.5 cm; Wt 72.0 kg
[2018-12-19] VITALS (7 sets, daily range): BP systolic 120–156; BP diastolic 73–98
[~2018-12-19 08:33] MED LIST changes: +ALVIMOPAN 12 MG CAPSULE (ENTEREG) PO ONE; +HEPARIN SOD (PORCINE) 5000 UNITS/ML VIAL SQ ONE; +LR 1,000 ML IV ONE; +LevoFLOXacin IV 500 MG in APPROPRIATE DILUENT 1 EA IV ONE; +metroNIDAZOLE 500 MG in APPROPRIATE DILUENT 1 EA IV ONE
[2018-12-19] MEDS ORDERED: FLAG500T PO (09:14)
[2018-12-19] MEDS ORDERED: TRAZ-252 PO (09:14)
[2018-12-19] MEDS ORDERED: NEOM500T PO (09:14)
[2018-12-19 09:30] LABS: URINE PREG TEST NEGATIVE (NEGATIVE)
[2018-12-19] MEDS ORDERED: BICITRA 30ML SOLN UDC As Ordered ONE (09:46)
[2018-12-19] MEDS ORDERED: BICITRA 30ML SOLN UDC PO ONE (10:00)
[2018-12-19] MEDS ORDERED: LIDOCAINE 1% SDV INJ 30 ML VIAL As Ordered ONE (10:12)
[2018-12-19] MEDS ORDERED: BUPIVACAINE HCL 0.25% 30 ML VIAL As Ordered ONE ×2 (10:12→12:56)
[2018-12-19] MEDS ORDERED: ACETAMINOPHEN 1000MG 100ML IV BTL (OFIRMEV) (J0131 PER 10MG) As Ordered ONE (11:33)
[2018-12-19] MEDS ORDERED: SUGAMMADEX SODIUM 500 MG/5 ML VIAL (BRIDION) As Ordered ONE (11:33)
[2018-12-19] MEDS ORDERED: KETOROLAC 60 MG/2 ML VIAL (J1885) As Ordered ONE (11:33)
[2018-12-19] MEDS ORDERED: dexameTHASONE 4 MG/ML 1ML VIAL (J1100) As Ordered ONE (11:33)
[2018-12-19] MEDS ORDERED: PROPOFOL 200 MG/20 ML VIAL As Ordered ONE ×2 (11:33→14:52)
[2018-12-19] MEDS ORDERED: LIDOCAINE 2% INJ 100 MG/5 ML SDV (FOR ANES.) As Ordered ONE (11:33)
[2018-12-19] MEDS ORDERED: ONDANSETRON 4MG/2ML VIAL (J2405) As Ordered ONE (11:33)
[2018-12-19] MEDS ORDERED: MIDAZOLAM INJ 2 MG/2 ML VIAL (J2250) As Ordered ONE (11:33)
[2018-12-19] MEDS ORDERED: ePHEDrine SULFATE 25 MG/5 ML(5MG/ML) SYRINGE As Ordered ONE (11:33)
[2018-12-19] MEDS ORDERED: ROCURONIUM BROMIDE 50 MG/5 ML VIAL As Ordered ONE ×2 (11:33→13:04)
[2018-12-19] MEDS ORDERED: fentaNYL 250 MCG/5 ML INJECTION (J3010) As Ordered ONE (11:33)
[2018-12-19] MEDS ORDERED: HYDROmorphone HCL 2 MG/ML 1ML VIAL (J1170) As Ordered ONE (12:16)
[2018-12-19] MEDS ORDERED: ESMOLOL INJ 100MG/10ML VIAL As Ordered ONE (15:31)
[2018-12-19] MEDS: LR 1,000 ML IV SCH ×2 (15:40→22:54)
[2018-12-19] MEDS ORDERED: PERCOCET 5MG/325MG TAB PO PRN (15:45)
[2018-12-19] MEDS ORDERED: ACETAMINOPHEN TAB 650MG DOSE (2X325MG) PO PRN (15:45)
--- NOTE | 2018-12-19 15:52 | ROOPDOC ---
[facility] Report Of Operation Report of Operation DATE OF PROCEDURE: 12/19/18 PREPROCEDURE DIAGNOSES: Recurrent Acute Diverticulitis. POSTPROCEDURE DIAGNOSES: same. PROCEDURE: Robotic Assisted Laparoscopic Sigmoid Colon Resection with end-to- end anastomosis (29 EEA Stapler). SURGEON: Hebert Wills MD ROSS FURNACE OPERATOR: MD Dr. Oseas Lockwood assisted me with extraction of the specimen transanally, performing the end-to-end anastomosis, performing flexible sigmoidoscopy to test the anastomosis. ANESTHESIA: General Anesthesia., US guided JIGAR block with Exparel and 1/4% Marcaine. ESTIMATED BLOOD LOSS: Approximately 50 mL. COMPLICATIONS: none. REMARKS: multiple scarring only at a localized area on the sigmoid, not much bulky disease. The left ovary was slightly tethered to the sigmoid colon mesentery. resected to the top of the rectum, slight portion of sigmoid colon left which looks normal. DESCRIPTION OF PROCEDURE: Patient received 500 mg Levaquin IV and 500 mg metronidazole IV for wound prophylaxis. As part of ERAS she got 12 mg of Entereg. She received 5000 units of heparin subcutaneous for DVT prophylaxis. The patient was brought to the operating room and placed on the operating table. Sequential compression devices and MARGARITO stockings placed for mechanical DVT prophylaxis during surgery. Gen. endotracheal anesthesia started. She was placed in lithotomy position on Nael stirrups . A Camara catheter placed for urine output monitoring. She was then prepped and draped in usual sterile fashion.Time-outs were performed using both preinduction and pre-incision safety checklists to verify correct patient, procedure, site, and additional critical information prior to beginning the procedure. A Veress needle was introduced into the abdominal cavity via the right upper quadrant subcostal area confirmed with saline drop technique and pneumoperit oneum was achieved to a pressure of 15 mmHg. A 5 mm optical trocar was inserted under direct vision of laparoscope using the same incision. The area and bowels underneath the insertion site was inspected for injury and none was found. She was then placed on a 25 Trendelenburg position with her left side tilted upwards to retract bowels away from her pelvis. The robotic trochars were placed along the line tracing obliquely from the anterior superior iliac spine on the right side to the left subcostal area. This includes three 8 mm ports and a 12 mm stapler port roughly 2 cm medial to the level of the anterior superior iliac spine on the right lower quadrant area. The robotic tower was then maneuvered bedside over the patient's left side and the trochars duct to the robotic arms. We used a 30 robotic laparoscopic for the procedure, a tip of grasper, a forced bipolar grasper connected to a bipolar cautery cord and robotic scissors connected to a monopolar cautery which got switched now and then to the vessel sealer. The omentum, small bowels were retracted away from the pelvis and left side of the abdomen exposing the course of the descending colon and sigmoid colon. I then unscrubbed, took position at the surgeon's console to begin the dissection. On diagnostic laparoscopy, I noted multiple scars and adhesions involving the sigmoid colon either from postoperative changes from her hysterectomy are associated with the diverticulitis. The right ovary was visualized with some cysts on them. The left ovary was covered by the sigmoid colon. A portion of the sigmoid colon was adhered to the left anterior abdominal wall which probably is the site of her recurrent diverticulitis. The sigmoid colon was relatively free but not overly floppy. There were large amounts of bulky epiploic appendages. The mesentery seems to be floppy and loose. I could palpate a solid nodule underneath are within or behind the mesentery of the sigmoid colon which got me concern for possible abscess but this turned out to be her left ovary which was tethered slightly upwards either from the scarring or from the diverticulitis. The sigmoid colon was lifted up towards the abdominal wall and the mesentery of the sigmoid colon stretched out to reveal the course of the inferior mesenteric artery. In a medial to lateral approach the peritoneum was opened up and blunt dissection created underneath and partly through the mesentery to reach the other side. The course of the ureter was identified this weight. She has multiple adhesive bands in the pelvis precluding me from fully pulling out the sigmoid I then sharply divided this adhesive bands to release the sigmoid colon further from the attachments to the anterior abdominal wall and left lateral abdominal wall and proceeded doing a lateral dissection freeing up the mesentery of the sigmoid colon from its attachments to the white line of Toldt continuing the posterior dissection lifting the mesentery of the Toldt's fascia. The previously noted lump turned out to be the left ovary. This was being tethered s lightly upwards to the left sidewall with multiple adhesions and this was freed up sharply and returned to its normal lateral ileocolic incision. A proceeded freeing up the sigmoid colon superiorly to the level of the mid descending colon. At this point and return to my medial dissection proceeding distally. I then identified an area on the upper rectum where it appears healthy he underwent where it is involved with the diverticulitis. He mesenteric window was then created underneath this area medially to laterally. After doing so the mesentery was divided with the vessel sealer proceeding proximally. I then identified an area proximally that appears healthy and free of the diverticulitis/diverticulosis. She just has a very specific small area where she has clear previous diverticulitis and the rest of the upper sigmoid seems to be healthy and without any diverticulosis. This was consistent with my colonoscopy findings. So I marked this area were appears healthy and she probably has about 3 or 4 cm of sigmoid colon left but otherwise is appears healthy. The mesentery was divided and the mesenteric window created around this area. After freeing up the entire length of the affected sigmoid colon, in a controlled fashion I divided the sigmoid colon sharply with the scissors while controlling the ascending colon to prevent spillage. I also did the same at the upper rectum as my distal margin dividing this sharply with laparoscopic dora. At this point I asked Dr. Farooq to come transanally and inserted the long [place] forceps and retrieved the specimen transanally which came through without much difficulty. Prior to inserting the Esau forceps he dilated the rectum with a 25 EEA stapler sizer. He then passed off the anvil of the 29 mm EEA stapler transanally into the abdomen. After this a further dissected at the stump with him stretching the rectum and straightened the course of the rectum with the EEA sizer the rectal stump was closed with the 45 mm stapler with a blue load. I then inserted the anvil of the stapler on the end of the sigmoid/descending colon. Using a 30V LOC a pursestring suture was placed at the opening of the descending colon to secure the stapler. Once this was done the 2 ends of the stapler was engaged and fired. We then tested our anastomosis under water with Dr. Farooq performing a flexible sigmoidoscopy. There is minimal oozing on part of the staple line that otherwise the staple line appears healthy. There were no leak detected during testing. Flexible sigmoidoscope was then removed. At this point a further area irrigated the abdomen and the survey of the surgical field and suction of visible fluid collections. I scrubbed back in and removed the 12 mm stapler port and closed this with 0 Vicryl using a Aupix device. The abdomen was insufflated all ports removed, the skin incisions closed with 4-0 Monocryl in a subsequent fashion. Dermabond dressings were placed on the port sites. There was some persistent mild oozing on the right upper quadrant 5 liver port site and this was closed with a mattress suture of 3-0 nylon. A small gauze dressing covered with Tegaderm and then placed. The patient was mildly awakened, extubated and brought to recovery room in a stable condition. Atypical wall for her to come out from the anesthesia and she remains sleepy through most of her stay in the recovery room with otherwise was hemodynamically stable and making adequate urine. . HEBERT WILLS MD Dec 19, 2018 15:52
--- NOTE | 2018-12-19 15:53 | POST-OPPD ---
Postoperative Procedure Note Date Of Procedure: Dec 19, 2018 PREPROCEDURE DIAGNOSES: Recurrent Acute Diverticulitis. POSTPROCEDURE DIAGNOSES: same. PROCEDURE: Robotic Assisted Laparoscopic Sigmoid Colon Resection with end-to- end anastomosis (29 EEA Stapler). SURGEON: Hebert Wills MD MOTHER'S HELPER: Rg Farooq MD ANESTHESIA: General Anesthesia. ESTIMATED BLOOD LOSS: Approximately 50 mL. COMPLICATIONS: none. REMARKS: multiple scarring only at a localized area on the sigmoid, not much bulky disease. The left ovary was slightly tethered to the sigmoid colon mesentery. resected to the top of the rectum, slight portion of sigmoid colon left which looks normal. SPECIMENS: portion of sigmoid colon, 2 donuts, rectum stump POSTOPERATIVE CONDITION: stable, extubated to PACU HEBERT WILLS MD Dec 19, 2018 15:53
[2018-12-19] MEDS: GABAPENTIN 300 MG CAP PO SCH ×2 (16:00→21:11)
[2018-12-19] MEDS ORDERED: fentaNYL 100 MCG/2 ML INJECTION (J3010) IV PRN (16:15)
[2018-12-19] MEDS ORDERED: HYDROMORPHONE HCL 0.5 MG/ 0.5 ML SYRINGE (J1170 PER 1) IV PRN (16:15)
[2018-12-19] MEDS ORDERED: LR 1,000 ML IV SCH (16:15)
[2018-12-19] MEDS ORDERED: PROMETHAZINE INJ 25 MG/ML VIAL (J2550) IV PRN (16:15)
[2018-12-19] MEDS ORDERED: ONDANSETRON 4MG/2ML VIAL (J2405) IV PRN (16:15)
[2018-12-19] MEDS ORDERED: LIDOCAINE 1% MDV 20ML VIAL ONE (17:47)
[2018-12-19] MEDS: PERCOCET 5MG/325MG TAB PO PRN (18:41)
[2018-12-19] MEDS: VENLAFAXINE **XR** 75MG CAPSULE PO SCH (21:10)
[2018-12-19] MEDS: HEPARIN SOD (PORCINE) 5000 UNITS/ML VIAL SC SCH (21:11)
[2018-12-19] MEDS: SENOKOT S TAB PO SCH (21:11)
[2018-12-19] MEDS: ONDANSETRON 4MG/2ML VIAL (J2405) IV PRN (21:11)
[2018-12-19] MEDS: KETOROLAC 30 MG/ML VIAL (J1885) IV PRN (22:54)
[2018-12-20] MEDS: PERCOCET 5MG/325MG TAB PO PRN ×3 (01:35→23:48)
[2018-12-20 03:15] VITALS: BP 129/81
[2018-12-20] MEDS: HEPARIN SOD (PORCINE) 5000 UNITS/ML VIAL SC SCH ×3 (06:20→21:42)
[2018-12-20] MEDS: ONDANSETRON 4MG/2ML VIAL (J2405) IV PRN (06:31)
[2018-12-20] MEDS: KETOROLAC 30 MG/ML VIAL (J1885) IV PRN ×3 (06:32→18:45)
[2018-12-20 07:52] LABS: BASO % 0.2 % (0.0-1.0); EOS % 0.1 % (0.0-3.0); HEMATOCRIT 37.2 % (36.0-47.0); HEMOGLOBIN 12.1 g/dl (12.0-15.5); LYMPH # 2.2 10^3/uL (1.5-4.5); LYMPH % 17.2 % (24.0-44.0); MEAN CORPUSCULAR HEMOGLOBIN 27.8 pg (27.0-33.0); MEAN CORPUSCULAR HGB CONC 32.5 g/dl (32.0-36.5); MEAN CORPUSCULAR VOLUME 85.5 fl (80.0-96.0); MONO # 0.9 10^3/uL (0.0-0.8); NEUTROPHILS # 9.8 10^3/uL (1.8-7.7); NEUTROPHILS % 75.1 % (36.0-66.0); PLATELET COUNT, AUTOMATED 267 10^3/uL (150-450); RED BLOOD COUNT 4.35 10^6/uL (4.00-5.40)
[2018-12-20 08:00] VITALS: BP 135/77
[2018-12-20 08:18] LABS: BLOOD UREA NITROGEN 6 MG/DL (7-18); CALCIUM LEVEL 8.2 MG/DL (8.5-10.1); CARBON DIOXIDE LEVEL 27 MEQ/L (21-32); CHLORIDE LEVEL 108 MEQ/L (98-107); CREATININE FOR GFR 0.74 MG/DL (0.55-1.30); GLOMERULAR FILTRATION RATE > 60.0 (>60); GLUCOSE, FASTING 91 MG/DL (70-100); POTASSIUM SERUM 3.7 MEQ/L (3.5-5.1); SODIUM LEVEL 142 MEQ/L (136-145)
[2018-12-20] MEDS ORDERED: VENLAFAXINE **XR** 75MG CAPSULE PO SCH (09:00)
[2018-12-20] MEDS: LR 1,000 ML IV SCH ×2 (09:00→23:47)
[2018-12-20] MEDS: METOCLOPRAMIDE INJ 10MG/2ML VIAL (J2765) IV SCH ×4 (09:00→23:47)
[2018-12-20] MEDS: SENOKOT S TAB PO SCH ×2 (10:10→21:42)
[2018-12-20] MEDS: GABAPENTIN 300 MG CAP PO SCH ×3 (10:10→21:42)
[2018-12-20] MEDS: ALVIMOPAN 12 MG CAPSULE (ENTEREG) PO SCH ×2 (10:10→21:42)
--- NOTE | 2018-12-20 10:24 | IPNPDOC ---
Subjective General Date/Time Seen The patient was seen on 12/20/18 at 10:20. Subject Chief Complaint/History The patient is a 38-year-old female admitted with a reason for visit of Recurrent Diverticulitis. Patient reports nausea overnight improved with Zofran but not totally going away. She reports some left lower quadrant abdominal discomfort. She is making profuse urine output Current Medications Current Medications Current Medications Medications (Trade) Dose Ordered Sig/Ramya Route PRN Reason Start Time Stop Time Status Last Admin Dose Admin Acetaminophen (Tylenol Tab) 650 mg Q4HP PRN PO MILD PAIN or TEMP > 101 12/19/18 15:45 Alvimopan (Entereg) 12 mg BID PO 12/20/18 09:00 12/27/18 08:59 12/20/18 10:10 Fentanyl Citrate (Sublimaze) 25 mcg Q5MP PRN IV MODERATE PAIN (PS 4-7) 12/19/18 16:15 12/19/18 17:15 DC Gabapentin (Neurontin) 300 mg TID PO 12/19/18 16:00 12/20/18 10:10 Heparin Sodium (Porcine) (Heparin) 5,000 units Q8H SC 12/19/18 22:00 12/20/18 06:20 Hydromorphone HCl (Dilaudid) 0.2 mg Q5MP PRN IV MODERATE/SEVERE PAIN (PS 5-10) 12/19/18 16:15 12/19/18 17:15 DC Ketorolac Tromethamine (ToRADol) 30 mg Q6HP PRN IV MILD/MODERATE PAIN (PS 1-7) 12/19/18 15:45 12/24/18 15:44 12/20/18 06:32 Lactated Ringer's 1,000 ml @ 60 mls/hr [id number] IV 12/19/18 15:40 12/20/18 09:00 Lactated Ringer's 1,000 ml @ 100 mls/hr Q10H IV 12/19/18 16:15 12/19/18 17:15 DC Metoclopramide HCl (REGLAN INJection) 10 mg Q6H IV 12/20/18 06:00 12/20/18 09:00 Ondansetron HCl (ZOFRAN INJection) 4 mg Q4HP PRN IV NAUSEA OR VOMITING 12/19/18 16:15 12/19/18 17:15 DC Ondansetron HCl (ZOFRAN INJection) 4 mg Q6HP PRN IV NAUSEA OR VOMITING 12/19/18 15:45 12/20/18 06:31 Oxycodone/ Acetaminophen (Percocet 5mg/ 325mg Tablet) 1 tab Q4HP PRN PO MODERATE PAIN (PS 5-7) 12/19/18 15:45 12/20/18 07:05 Oxycodone/ Acetaminophen (Percocet 5mg/ 325mg Tablet) 2 tab Q6HP PRN PO SEVERE PAIN (PS 8-10) 12/19/18 15:45 Promethazine HCl (PHENERGAN INJection) 12.5 mg Q5MP PRN IV NAUSEA OR VOMITING 12/19/18 16:15 12/19/18 17:15 DC Senna/Docusate Sodium (Senokot S) 1 tab BID PO 12/19/18 21:00 12/20/18 10:10 Venlafaxine HCl (Effexor Xr) 75 mg DAILY PO 12/20/18 09:00 12/20/18 09:00 DC Venlafaxine HCl (Effexor Xr) 75 mg QHS PO 12/19/18 21:00 12/19/18 21:10 Allergies Coded Allergies: latex (Verified Allergy, Severe, anaphylaxis, 12/19/18) Penicillins (Verified Allergy, Intermediate, rash/hives, 12/19/18) tramadol (Verified Allergy, Intermediate, rash, 12/19/18) TAPE (Verified Adverse Reaction, Mild, "LOCAL REACTION", 12/19/18) lactose (Verified Adverse Reaction, Mild, nausea/vomitting /diarrhea, 12/19/18) Objective Physical Examination Examination GENERAL APPEARANCE: Looks mildly uncomfortable secondary to her nausea. SKIN: Warm and dry. HEENT: Normocephalic, atraumatic. Lips and mucosa appear mildly dry. NECK: Supple, no thyromegaly. No obvious jugular venous distention. LUNGS: Clear to auscultation bilaterally. No wheezing appreciated. HEART: No chest wall abnormalities. Regular rate and rhythm with no murmurs appreciated. ABDOMEN: Abdomen is relatively flat, soft, minimally distended. Active bowel sounds. She has port site incisions placing the diagonal fashion from left upper quadrant and right lower quadrant with Dermabond on them that looks clean, dry and intact in the next 5 mm ports in the right upper quadrant area also looks clean dry and intact. Mild discomfort, tenderness on palpation over left lower quadrant area without guarding.. EXTREMITIES: Extremities have no deformities. No edema identified. Vital Signs Vital Signs Date Time Temp Pulse Resp B/P (MAP) Pulse Ox O2 Delivery O2 Flow Rate FiO2 12/20/18 08:00 97.7 77 17 135/77 (96) 97 2.0 I&Os I&O- Last 24 Hours up to 6 AM 12/20/18 06:00 Intake Total 4515 ml Output Total 2450 ml Balance 2065 ml Laboratory Data Labs 24H Laboratory Tests 2 12/20/18 07:11: Immature Granulocyte % (Auto) 0.4, White Blood Count 13.0H, Red Blood Count 4.35, Hemoglobin 12.1, Hematocrit 37.2, Mean Corpuscular Volume 85.5, Mean Corpuscular Hemoglobin 27.8, Mean Corpuscular Hemoglobin Concent 32.5, Red Cell Distribution Width 12.8, Platelet Count 267, Neutrophils (%) (Auto) 75.1H, Lymphocytes (%) (Auto) 17.2L, Monocytes (%) (Auto) 7.0H, Eosinophils (%) (Auto) 0.1, Basophils (%) (Auto) 0.2, Neutrophils # (Auto) 9.8H, Lymphocytes # (Auto) 2.2, Monocytes # (Auto) 0.9H, Eosinophils # (Auto) 0.0, Basophils # (Auto) 0.0, Nucleated Red Blood Cells % (auto) 0.0, Anion Gap 7L, Glomerular Filtration Rate > 60.0, Blood Urea Nitrogen 6L, Creatinine 0.74, Sodium Level 142, Potassium Level 3.7, Chloride Level 108H, Carbon Dioxide Level 27, Calcium Level 8.2L CBC/BMP Laboratory Tests 12/20/18 07:11 Red Blood Count 4.35, Mean Corpuscular Volume 85.5, Mean Corpuscular Hemoglobin 27.8, Mean Corpuscular Hemoglobin Concent 32.5, Red Cell Distribution Width 12.8, Neutrophils (%) (Auto) 75.1 H, Lymphocytes (%) (Auto) 17.2 L, Monocytes (%) (Auto) 7.0 H, Eosinophils (%) (Auto) 0.1, Basophils (%) (Auto) 0.2, Neutrophils # (Auto) 9.8 H, Lymphocytes # (Auto) 2.2, Monocytes # (Auto) 0.9 H, Eosinophils # (Auto) 0.0, Basophils # (Auto) 0.0, Calcium Level 8.2 L Impression Postop day 1 robotic-assisted laparoscopic sigmoid colectomy with end-to-end proximal ANASTOMOSIS for recurrent acute diverticulitis. Overall doing well main problem at this time is that she is nauseated though she has not thrown up and she is drinking small amount of liquids. No bowel activity yet. We will discontinue her Camara cath and come down on her IV fluids. I'll continue to clear liquids and reevaluate later on the day our nauseating note is doing and probably if this is better controlled advance her diet. I discussed with her importance of mobilization and ambulation to aid in the return of her bowel activity and she is willing to ambulate to the hallways. I'll add some Reglan and by mouth meclizine to help in management of her postoperative nausea. She will be on Entereg. Continue with heparin for DVT prophylaxis. Her home medications have been reviewed. Plan / VTE VTE Prophylaxis Ordered?: Yes ELIAZAR CAMERON MD Dec 20, 2018 10:24
[2018-12-20 12:00] VITALS: BP 130/65
[2018-12-20 16:00] VITALS: BP 115/74
[2018-12-20 20:00] VITALS: BP 116/77
[2018-12-20] MEDS: VENLAFAXINE **XR** 75MG CAPSULE PO SCH (21:42)
[2018-12-21] VITALS: BP 134/86
[2018-12-21 04:00] VITALS: BP 131/87
[2018-12-21] MEDS: KETOROLAC 30 MG/ML VIAL (J1885) IV PRN ×2 (05:08→16:48)
[2018-12-21] MEDS: METOCLOPRAMIDE INJ 10MG/2ML VIAL (J2765) IV SCH (06:38)
[2018-12-21] MEDS: HEPARIN SOD (PORCINE) 5000 UNITS/ML VIAL SC SCH ×3 (06:38→21:02)
[2018-12-21 07:42] LABS: BASO % 0.4 % (0.0-1.0); EOS # 0.3 10^3/uL (0.0-0.50); EOS % 3.2 % (0.0-3.0); HEMATOCRIT 37.9 % (36.0-47.0); HEMOGLOBIN 12.3 g/dl (12.0-15.5); LYMPH # 2.5 10^3/uL (1.5-4.5); LYMPH % 25.3 % (24.0-44.0); MEAN CORPUSCULAR HEMOGLOBIN 28.5 pg (27.0-33.0); MEAN CORPUSCULAR HGB CONC 32.5 g/dl (32.0-36.5); MEAN CORPUSCULAR VOLUME 87.7 fl (80.0-96.0); MONO # 0.7 10^3/uL (0.0-0.8); MONO % 6.7 % (0.0-5.0); NEUTROPHILS # 6.4 10^3/uL (1.8-7.7); NEUTROPHILS % 64.1 % (36.0-66.0); PLATELET COUNT, AUTOMATED 231 10^3/uL (150-450); RED BLOOD COUNT 4.32 10^6/uL (4.00-5.40)
[2018-12-21 08:03] LABS: BLOOD UREA NITROGEN 7 MG/DL (7-18); CALCIUM LEVEL 8.3 MG/DL (8.5-10.1); CARBON DIOXIDE LEVEL 30 MEQ/L (21-32); CHLORIDE LEVEL 105 MEQ/L (98-107); CREATININE FOR GFR 0.72 MG/DL (0.55-1.30); GLOMERULAR FILTRATION RATE > 60.0 (>60); GLUCOSE, FASTING 84 MG/DL (70-100); POTASSIUM SERUM 3.6 MEQ/L (3.5-5.1); SODIUM LEVEL 140 MEQ/L (136-145)
[2018-12-21 09:00] VITALS: BP 127/80
[2018-12-21] MEDS: SENOKOT S TAB PO SCH ×2 (09:07→21:03)
[2018-12-21] MEDS: ALVIMOPAN 12 MG CAPSULE (ENTEREG) PO SCH ×2 (09:07→21:03)
[2018-12-21] MEDS: GABAPENTIN 300 MG CAP PO SCH ×3 (09:07→21:03)
[2018-12-21] MEDS ORDERED: PERCOCET PO (09:37)
--- NOTE | 2018-12-21 09:43 | IPNPDOC ---
Subjective General Date/Time Seen The patient was seen on 12/21/18 at 09:40. Subject Chief Complaint/History The patient is a 38-year-old female admitted with a reason for visit of Recurrent Diverticulitis. She reports she is feeling better nausea has improved though has not fully gone away and still need some medication she is tolerating clear liquids though has not taken much oral intake yesterday due to nausea. She is ambulating to the hallways. She is stable hemodynamically. She reports improving abdominal dis comfort at the left lower quadrant and incision sites. Current Medications Current Medications Current Medications Medications (Trade) Dose Ordered Sig/Ramya Route PRN Reason Start Time Stop Time Status Last Admin Dose Admin Acetaminophen (Tylenol Tab) 650 mg Q4HP PRN PO MILD PAIN or TEMP > 101 12/19/18 15:45 Alvimopan (Entereg) 12 mg BID PO 12/20/18 09:00 12/27/18 08:59 12/21/18 09:07 Fentanyl Citrate (Sublimaze) 25 mcg Q5MP PRN IV MODERATE PAIN (PS 4-7) 12/19/18 16:15 12/19/18 17:15 DC Gabapentin (Neurontin) 300 mg TID PO 12/19/18 16:00 12/21/18 09:07 Heparin Sodium (Porcine) (Heparin) 5,000 units Q8H SC 12/19/18 22:00 12/21/18 06:38 Hydromorphone HCl (Dilaudid) 0.2 mg Q5MP PRN IV MODERATE/SEVERE PAIN (PS 5-10) 12/19/18 16:15 12/19/18 17:15 DC Ketorolac Tromethamine (ToRADol) 30 mg Q6HP PRN IV MILD/MODERATE PAIN (PS 1-7) 12/19/18 15:45 12/24/18 15:44 12/21/18 05:08 Lactated Ringer's 1,000 ml @ 60 mls/hr [id number] IV 12/19/18 15:40 12/21/18 07:52 DC 12/20/18 23:47 Lactated Ringer's 1,000 ml @ 100 mls/hr Q10H IV 12/19/18 16:15 12/19/18 17:15 DC Meclizine HCl (Antivert) 12.5 mg Q8HP PRN PO DIZZINESS 12/21/18 09:45 UNV Metoclopramide HCl (REGLAN INJection) 10 mg Q6H IV 12/20/18 06:00 12/21/18 09:36 DC 12/21/18 06:38 Metoclopramide HCl (REGLAN INJection) 10 mg Q6H PRN IV nausea 12/21/18 09:45 UNV Ondansetron HCl (ZOFRAN INJection) 4 mg Q4HP PRN IV NAUSEA OR VOMITING 12/19/18 16:15 12/19/18 17:15 DC Ondansetron HCl (ZOFRAN INJection) 4 mg Q6HP PRN IV NAUSEA OR VOMITING 12/19/18 15:45 12/20/18 06:31 Oxycodone/ Acetaminophen (Percocet 5mg/ 325mg Tablet) 1 tab Q4HP PRN PO MODERATE PAIN (PS 5-7) 12/19/18 15:45 12/20/18 23:48 Oxycodone/ Acetaminophen (Percocet 5mg/ 325mg Tablet) 2 tab Q6HP PRN PO SEVERE PAIN (PS 8-10) 12/19/18 15:45 Promethazine HCl (PHENERGAN INJection) 12.5 mg Q5MP PRN IV NAUSEA OR VOMITING 12/19/18 16:15 12/19/18 17:15 DC Senna/Docusate Sodium (Senokot S) 1 tab BID PO 12/19/18 21:00 12/21/18 09:07 Venlafaxine HCl (Effexor Xr) 75 mg DAILY PO 12/20/18 09:00 12/20/18 09:00 DC Venlafaxine HCl (Effexor Xr) 75 mg QHS PO 12/19/18 21:00 12/20/18 21:42 Allergies Coded Allergies: latex (Verified Allergy, Severe, anaphylaxis, 12/19/18) Penicillins (Verified Allergy, Intermediate, rash/hives, 12/19/18) tramadol (Verified Allergy, Intermediate, rash, 12/19/18) TAPE (Verified Adverse Reaction, Mild, "LOCAL REACTION", 12/19/18) lactose (Verified Adverse Reaction, Mild, nausea/vomitting /diarrhea, 12/19/18) Objective Physical Examination Examination GENERAL APPEARANCE: Looks comfortable. SKIN: Warm and moist. HEENT: Normocephalic, atraumatic. [place] palpebral conjunctiva, anicteric sclerae. Lips and mucosa appear moist. LUNGS: Clear to auscultation bilaterally. No wheezing appreciated. HEART: No chest wall abnormalities. Regular rate and rhythm with no murmurs appreciated. ABDOMEN: Abdomen is relatively flat, soft, and nondistended. Port site incisions covered with slough, clean dry. Minimal tenderness around the incision and left lower quadrant area. No rebound or guarding. EXTREMITIES: Extremities have no deformities. No edema identified. Vital Signs Vital Signs Date Time Temp Pulse Resp B/P (MAP) Pulse Ox O2 Delivery O2 Flow Rate FiO2 12/21/18 04:00 96.9 64 18 131/87 (102) 95 12/20/18 08:00 2.0 I&Os I&O- Last 24 Hours up to 6 AM 12/21/18 06:00 Intake Total 750 ml Output Total 2600 ml Balance -1850 ml Laboratory Data Labs 24H Laboratory Tests 2 12/21/18 07:05: Immature Granulocyte % (Auto) 0.3, White Blood Count 10.0, Red Blood Count 4.32, Hemoglobin 12.3, Hematocrit 37.9, Mean Corpuscular Volume 87.7, Mean Corpuscular Hemoglobin 28.5, Mean Corpuscular Hemoglobin Concent 32.5, Red Cell Distribution Width 12.9, Platelet Count 231, Neutrophils (%) (Auto) 64.1, Lymphocytes (%) (Auto) 25.3, Monocytes (%) (Auto) 6.7H, Eosinophils (%) (Auto) 3.2H, Basophils (%) (Auto) 0.4, Neutrophils # (Auto) 6.4, Lymphocytes # (Auto) 2.5, Monocytes # (Auto) 0.7, Eosinophils # (Auto) 0.3, Basophils # (Auto) 0.0, Nucleated Red Blood Cells % (auto) 0.0, Anion Gap 5L, Glomerular Filtration Rate > 60.0, Blood Urea Nitrogen 7, Creatinine 0.72, Sodium Level 140, Potassium Level 3.6, Chloride Level 105, Carbon Dioxide Level 30, Calcium Level 8.3L CBC/BMP Laboratory Tests 12/21/18 07:05 Red Blood Count 4.32, Mean Corpuscular Volume 87.7, Mean Corpuscular Hemoglobin 28.5, Mean Corpuscular Hemoglobin Concent 32.5, Red Cell Distribution Width 12.9, Neutrophils (%) (Auto) 64.1, Lymphocytes (%) (Auto) 25.3, Monocytes (%) (Auto) 6.7 H, Eosinophils (%) (Auto) 3.2 H, Basophils (%) (Auto) 0.4, Neutrophils # (Auto) 6.4, Lymphocytes # (Auto) 2.5, Monocytes # (Auto) 0.7, Eosinophils # (Auto) 0.3, Basophils # (Auto) 0.0, Calcium Level 8.3 L Impression Postop day 2 robotic-assisted laparoscopic sigmoid colectomy with end-to-end proximal ANASTOMOSIS for recurrent acute diverticulitis. Nausea is better. The nurse reports she hasn't taking much orally yet. She's had 2 loose stools so far she reports passing flatus. Reports abdominal discomfort is better. She appears to be doing well postoperatively. Her labs have normalized at this point her abdomen feels benign in no longer distended. I'll advance her diet. I'll put her on by mouth antinausea medication to aid her in case she gets nauseated. If she is able to tolerate food and able to hydrate herself possibly go home tomorrow. I again discussed with her intraoperative findings. She is very minimal diverticulosis and localized area of diverticulitis. She did have scarred in left ovary which was tethered away from the pelvis which is possibly also the cause of her pain. His were all addressed intraoperatively. Plan / VTE VTE Prophylaxis Ordered?: Yes ELIAZAR CAMERON MD Dec 21, 2018 09:43
[2018-12-21] MEDS ORDERED: MECLIZINE 12.5 MG TAB PO PRN (09:45)
[2018-12-21] MEDS ORDERED: METOCLOPRAMIDE INJ 10MG/2ML VIAL (J2765) IV PRN (09:45)
[2018-12-21 12:00] VITALS: BP 128/68
[2018-12-21] MEDS ORDERED: SLF 3 ML SYR IV PRN (14:45)
[2018-12-21 16:00] VITALS: BP 125/83
[2018-12-21 20:00] VITALS: BP 116/71
[2018-12-21] MEDS: SLF 3 ML SYR IV SCH (21:03)
[2018-12-21] MEDS: VENLAFAXINE **XR** 75MG CAPSULE PO SCH (21:03)
[2018-12-22] VITALS: BP 116/70
[2018-12-22 04:00] VITALS: BP 109/64
[2018-12-22] MEDS: HEPARIN SOD (PORCINE) 5000 UNITS/ML VIAL SC SCH (06:13)
[2018-12-22] MEDS: SLF 3 ML SYR IV SCH (06:13)
[2018-12-22 06:33] LABS: BASO % 0.4 % (0.0-1.0); EOS # 0.6 10^3/uL (0.0-0.50); EOS % 5.6 % (0.0-3.0); HEMATOCRIT 40.8 % (36.0-47.0); HEMOGLOBIN 13.4 g/dl (12.0-15.5); LYMPH # 2.1 10^3/uL (1.5-4.5); LYMPH % 21.5 % (24.0-44.0); MEAN CORPUSCULAR HEMOGLOBIN 28.3 pg (27.0-33.0); MEAN CORPUSCULAR HGB CONC 32.8 g/dl (32.0-36.5); MEAN CORPUSCULAR VOLUME 86.3 fl (80.0-96.0); MONO # 0.6 10^3/uL (0.0-0.8); MONO % 6.5 % (0.0-5.0); NEUTROPHILS # 6.4 10^3/uL (1.8-7.7); NEUTROPHILS % 65.8 % (36.0-66.0); PLATELET COUNT, AUTOMATED 250 10^3/uL (150-450); RED BLOOD COUNT 4.73 10^6/uL (4.00-5.40); WHITE BLOOD COUNT 9.8 10^3/uL (4.0-10.0)
[2018-12-22 06:54] LABS: BLOOD UREA NITROGEN 11 MG/DL (7-18); CALCIUM LEVEL 8.7 MG/DL (8.5-10.1); CARBON DIOXIDE LEVEL 29 MEQ/L (21-32); CHLORIDE LEVEL 107 MEQ/L (98-107); GLOMERULAR FILTRATION RATE > 60.0 (>60); GLUCOSE, FASTING 95 MG/DL (70-100); POTASSIUM SERUM 3.5 MEQ/L (3.5-5.1); SODIUM LEVEL 139 MEQ/L (136-145)
[2018-12-22 08:00] VITALS: BP 131/84
[2018-12-22] MEDS: ALVIMOPAN 12 MG CAPSULE (ENTEREG) PO SCH (08:13)
[2018-12-22] MEDS: GABAPENTIN 300 MG CAP PO SCH (08:13)
[2018-12-22] MEDS: SENOKOT S TAB PO SCH (08:14)
[2018-12-22] MEDS ORDERED: TRAM50TA2 PO (08:57)
[2018-12-22] MEDS ORDERED: NORC1TAB7 PO (09:03)
== END 2018-12-22 10:15 | disposition home or self-care (01) | DRG 221 ==
LOC: M OR 08:33 → M PED 18:00
PROVIDERS: ADMIT Surgery; ATTEND Surgery
PROC: 0DBN4ZZ Excision of Sigmoid Colon, Percutaneous Endoscopic Approach (ICD-10-PCS; principal; 2018-12-19 10:00)
DX: K57.32 Diverticulitis of large intestine without perforation or abscess without bleeding (principal); Z90.710 Acquired absence of both cervix and uterus; J45.909 Unspecified asthma, uncomplicated; K21.9 Gastro-esophageal reflux disease without esophagitis; E04.1 Nontoxic single thyroid nodule; K58.2 Mixed irritable bowel syndrome; Z79.1 Long term (current) use of non-steroidal anti-inflammatories (NSAID); Z79.899 Other long term (current) drug therapy; Z88.0 Allergy status to penicillin; Z88.5 Allergy status to narcotic agent; Z91.040 Latex allergy status; Z91.011 Allergy to milk products; Z91.048 Other nonmedicinal substance allergy status

== ENCOUNTER 2019-01-14 20:29 | Observation (INO) | payer BC ==
[~2019-01-14] VITALS: Ht 157.5 cm; Wt 75.2 kg
[~2019-01-14 20:29] MED LIST changes: -ALVIMOPAN 12 MG CAPSULE (ENTEREG) PO ONE; +FLAG500T PO; -HEPARIN SOD (PORCINE) 5000 UNITS/ML VIAL SQ ONE; -LR 1,000 ML IV ONE; -LevoFLOXacin IV 500 MG in APPROPRIATE DILUENT 1 EA IV ONE; +NEOM500T PO; +NORC1TAB7 PO; +PERCOCET PO; +TRAM50TA2 PO; +TRAZ-252 PO; -metroNIDAZOLE 500 MG in APPROPRIATE DILUENT 1 EA IV ONE
[2019-01-14] MEDS ORDERED: NS 1,000 ML IV ONE (21:00)
[2019-01-14] MEDS ORDERED: METOCLOPRAMIDE INJ 10MG/2ML VIAL (J2765) IV ONE (21:00)
[2019-01-14] MEDS ORDERED: MORPHINE 4 MG/ML 1ML VIAL/SYRINGE (J2270) IV ONE (21:00)
[2019-01-14] MEDS ORDERED: METOCLOPRAMIDE INJ 10MG/2ML VIAL (J2765) As Ordered ONE (21:08)
[2019-01-14 21:20] LABS: BASO # 0.1 10^3/uL (0.0-0.2); BASO % 0.5 % (0.0-1.0); EOS # 0.4 10^3/uL (0.0-0.5); EOS % 4.1 % (0.0-3.0); HEMATOCRIT 41.3 % (36.0-47.0); HEMOGLOBIN 13.7 g/dl (12.0-15.5); LYMPH # 3.4 10^3/uL (1.5-5.0); LYMPH % 32.4 % (24.0-44.0); MEAN CORPUSCULAR HEMOGLOBIN 28.1 pg (27.0-33.0); MEAN CORPUSCULAR HGB CONC 33.2 g/dl (32.0-36.5); MEAN CORPUSCULAR VOLUME 84.8 fl (80.0-96.0); MONO # 0.8 10^3/uL (0.0-0.8); MONO % 7.9 % (0.0-5.0); NEUTROPHILS # 5.8 10^3/uL (1.5-8.5); NEUTROPHILS % 54.9 % (36.0-66.0); PLATELET COUNT, AUTOMATED 279 10^3/uL (150-450); RED BLOOD COUNT 4.87 10^6/uL (4.00-5.40); WHITE BLOOD COUNT 10.6 10^3/uL (4.0-10.0)
[2019-01-14] MEDS: GASTROGRAFIN SOLUTION 30ML PO SCH ×2 (21:24→21:53)
[2019-01-14 21:27] LABS: APPEARANCE, URINE HAZY (CLEAR); BACTERIA, URINE AUTO 1+ (NEGATIVE); BILIRUBIN, URINE AUTO NEGATIVE (NEGATIVE); BLOOD, URINE BLOOD 2+ (NEGATIVE); COLOR, URINE YELLOW (YELLOW); GLUCOSE, URINE (UA) AUTO NEGATIVE (NEGATIVE); KETONE, URINE AUTO NEGATIVE (NEGATIVE); LEUKOCYTE ESTERASE, URINE AUTO NEGATIVE (NEGATIVE); MUCUS, URINE SMALL (NEGATIVE); NITRITE, URINE AUTO POSITIVE (NEGATIVE); PROTEIN, URINE AUTO NEGATIVE (NEGATIVE); RBC, URINE AUTO 6 /HPF (0-3); SQUAMOUS EPITHELIAL CELL UR AU 2 /HPF (0-6); UROBILINOGEN, URINE AUTO 0.2 mg/dL (0.0-2.0); WBC, URINE AUTO 3 /HPF (0-3)
[2019-01-14 21:34] LABS: INR 1.05; PARTIAL THROMBOPLASTIN TIME 29.1 SECONDS (25.0-38.4); PROTHROMBIN TIME 13.4 SECONDS (11.8-14.0)
[2019-01-14 21:41] LABS: ALBUMIN 3.7 GM/DL (3.2-5.2); ALT/SGPT 20 U/L (12-78); BILIRUBIN,DIRECT 0.1 MG/DL (0.0-0.2); BILIRUBIN,TOTAL 0.3 MG/DL (0.2-1.0); BLOOD UREA NITROGEN 8 MG/DL (7-18); CALCIUM LEVEL 9.1 MG/DL (8.5-10.1); CARBON DIOXIDE LEVEL 26 MEQ/L (21-32); CHLORIDE LEVEL 105 MEQ/L (98-107); CREATININE FOR GFR 0.92 MG/DL (0.55-1.30); GLOMERULAR FILTRATION RATE > 60.0 (>60); GLUCOSE, FASTING 104 MG/DL (70-100); LIPASE 188 U/L (73-393); POTASSIUM SERUM 3.3 MEQ/L (3.5-5.1); SODIUM LEVEL 141 MEQ/L (136-145)
[2019-01-14] MEDS ORDERED: ISOVUE-370 76% 100ML VIAL (Q9967) As Ordered ONE (23:10)
--- NOTE | 2019-01-15 | REPVR ---
EXAM: CT Abdomen and Pelvis With Contrast EXAM DATE/TIME: 01/14/2019 8:58 PM CLINICAL HISTORY: 38 years old, female; Abdominal pain; Localized; Lower; Prior surgery; Surgery date: <1 month; Surgery type: Colectomy; Additional info: Low abd pain/colectomy 2 wk ago TECHNIQUE: Imaging protocol: Computed tomography of the abdomen and pelvis with intravenous contrast. Radiation optimization: All CT scans at this facility use at least one of these dose optimization techniques: automated exposure control; mA and/or kV adjustment per patient size (includes targeted exams where dose is matched to clinical indication); or iterative reconstruction. Contrast material: ISO; Contrast volume: 100 ml; Contrast route: AC; COMPARISON: CT ABD PELVIS WITH CONTRAST 09/10/2018 6:01 PM FINDINGS: Liver: There is a diffuse decrease in hepatic parenchymal density, consistent with fatty infiltration. Small lucency in the right lobe of liver likely represents a cyst or incompletely opacified hemangioma, stable. Gallbladder and bile ducts: There has been a cholecystectomy. Pancreas: Normal. No ductal dilation. Spleen: Normal. No splenomegaly. Adrenals: Normal. No mass. Kidneys and ureters: Normal. No hydronephrosis. Stomach and bowel: Status post subtotal colectomy with surgical anastomosis in the sigmoid colon. Abnormal segment of the left colon extending from the splenic flexure to the surgical anastomosis demonstrating thickened wall and pericolonic inflammation. Findings consistent with colitis. Appendix: No evidence of appendicitis. Intraperitoneal space: Unremarkable. No free air. No significant fluid collection. Vasculature: Unremarkable. No abdominal aortic aneurysm. Lymph nodes: Unremarkable. No enlarged lymph nodes. Bladder: Unremarkable as visualized. Reproductive: There has been a hysterectomy. Bones/joints: Unremarkable. No acute fracture. Soft tissues: Unremarkable. IMPRESSION: 1. Status post subtotal colectomy with surgical anastomosis in the sigmoid colon. Abnormal segment of the left colon extending from the splenic flexure to the surgical anastomosis demonstrating thickened wall and pericolonic inflammation. Findings consistent with acute or subacute colitis. 2. There is a diffuse decrease in hepatic parenchymal density, consistent with fatty infiltration. 3. There has been a cholecystectomy. 4. There has been a hysterectomy. COMMENT: Consistent with the [employer]'s Incidental Findings Committee Report (J Am Malka Radiol 2010): Unless the patient's specific circumstances suggest otherwise, any liver lesion 0.5 cm or less, any cystic kidney lesion less than 1.0 cm, and/or any adrenal lesion 1.0 cm or less not otherwise characterized in this report as possessing suspicious or indeterminate imaging features is/are highly likely to be benign and do not require follow-up imaging or biopsy. Electronically signed by: Yobani Sung On 01/14/2019 23:59:33 PM
[2019-01-15] MEDS: LR 1,000 ML IV SCH ×4 (01:10→23:50)
[2019-01-15] MEDS ORDERED: ONDANSETRON 4MG/2ML VIAL (J2405) As Ordered ONE (01:11)
[2019-01-15] MEDS ORDERED: ONDANSETRON 4MG/2ML VIAL (J2405) IV ONE (01:15)
[2019-01-15] MEDS ORDERED: MORPHINE 4 MG/ML 1ML VIAL/SYRINGE (J2270) IV ONE (01:15)
[2019-01-15] MEDS ORDERED: TIZA4CAP PO (02:00)
[2019-01-15] MEDS ORDERED: DOCU100C17 PO (02:06)
[2019-01-15] MEDS ORDERED: EPIN0.3I11 IM (02:06)
[2019-01-15] MEDS ORDERED: MOBI4TAB PO (02:06)
[2019-01-15] MEDS ORDERED: LIDO1PAD TOP (02:06)
[2019-01-15] MEDS ORDERED: CETI10TA8 PO (02:06)
[2019-01-15] MEDS ORDERED: PANT-23 PO (02:06)
[2019-01-15] MEDS ORDERED: VENL75TA2 PO (02:07)
[2019-01-15] MEDS ORDERED: ACETAMINOPHEN TAB 650MG DOSE (2X325MG) PO PRN (04:45)
[2019-01-15] MEDS: MORPHINE 4 MG/ML 1ML VIAL/SYRINGE (J2270) IV PRN (06:51)
[2019-01-15 07:50] VITALS: BP 131/81
[2019-01-15] MEDS: GABAPENTIN 300 MG CAP PO SCH ×3 (08:22→21:06)
[2019-01-15] MEDS: CETIRIZINE (ZyrTEC) 10 MG TAB PO SCH (08:22)
[2019-01-15] MEDS: ONDANSETRON 4MG/2ML VIAL (J2405) IV PRN ×2 (09:56→17:05)
[2019-01-15 10:00] VITALS: BP 135/84
[2019-01-15 10:23] LABS: BASO # 0.1 10^3/uL (0.0-0.2); BASO % 0.6 % (0.0-1.0); EOS # 0.2 10^3/uL (0.0-0.5); EOS % 2.7 % (0.0-3.0); HEMATOCRIT 50.4 % (36.0-47.0); HEMOGLOBIN 13.9 g/dl (12.0-15.5); LYMPH # 2.1 10^3/uL (1.5-5.0); LYMPH % 24.9 % (24.0-44.0); MEAN CORPUSCULAR HGB CONC 27.6 g/dl (32.0-36.5); MONO # 0.6 10^3/uL (0.0-0.8); MONO % 6.7 % (0.0-5.0); NEUTROPHILS # 5.5 10^3/uL (1.5-8.5); NEUTROPHILS % 64.7 % (36.0-66.0); PLATELET COUNT, AUTOMATED 308 10^3/uL (150-450); WHITE BLOOD COUNT 8.4 10^3/uL (4.0-10.0)
[2019-01-15] MEDS: METOCLOPRAMIDE INJ 10MG/2ML VIAL (J2765) IV PRN ×2 (11:25→19:42)
--- NOTE | 2019-01-15 13:04 | IPNPDOC ---
Subjective General Date/Time Seen The patient was seen on 01/15/19 at 12:59. Subject Chief Complaint/History The patient is a 38-year-old female admitted with a reason for visit of Abdominal Cramping,Diarrhea. Patient admitted for observation for complaints of crampy abdominal pain, loose watery diarrhea and now vomiting. Patient reports that she started having crampy abdominal pain over the weekend and yesterday she had multiple loose stools that she thought looked bloodstained. She has not had a bowel movement since she's been in the hospital but this morning she felt nauseated and a couple episodes of vomiting. She has been afebrile. I did a sigmoid colectomy on her for recurrent diverticulitis 12/19/2018 and last time I saw her was 01/08/2019 for her postoperative check and she felt well at that time. She denies any sick contacts or any unusual food, rule out food, seafoods intake recently. Current Medications Current Medications Current Medications Medications (Trade) Dose Ordered Sig/Ramya Route PRN Reason Start Time Stop Time Status Last Admin Dose Admin Acetaminophen (Tylenol Tab) 650 mg Q4HP PRN PO MILD PAIN or TEMP > 101 01/15/19 04:45 Acetaminophen/ Hydrocodone Bitart ([place], Anexsia 5/325) 1 tab Q4HP PRN PO MODERATE PAIN (PS 5-7) 01/15/19 04:45 Cetirizine HCl (ZyrTEC) 10 mg DAILY PO 01/15/19 09:00 01/15/19 08:22 Diatrizoate Meglum/ Diatrizoate Sod (Gastrografin) 10 ml Q30M PO 01/14/19 21:30 01/14/19 22:01 DC 01/14/19 21:53 Gabapentin (Neurontin) 300 mg TID PO 01/15/19 09:00 01/15/19 08:22 Home Med (Med Rec Complete!) ASDIRECTED XX 01/15/19 02:15 01/15/19 02:15 DC Lactated Ringer's 1,000 ml @ 125 mls/hr Q8H IV 01/15/19 04:44 01/15/19 06:43 Metoclopramide HCl (REGLAN INJection) 10 mg Q6HP PRN IV NAUSEA OR VOMITING 01/15/19 04:45 01/15/19 11:25 Morphine Sulfate (Morphine Sulfate Inj) 2 mg Q2HP PRN IV SEVERE PAIN (PS 8-10) 01/15/19 04:45 01/15/19 06:51 Ondansetron HCl (ZOFRAN INJection) 4 mg Q6HP PRN IV NAUSEA OR VOMITING 01/15/19 04:45 01/15/19 09:56 Potassium Chloride (Micro-K Extencaps) 20 meq DAILY PO 01/15/19 09:00 Tizanidine HCl (Zanaflex) 8 mg QHS PO 01/15/19 21:00 Venlafaxine HCl (Effexor) 75 mg QHS PO 01/15/19 21:00 Allergies Coded Allergies: latex (Verified Allergy, Severe, anaphylaxis, 12/19/18) Penicillins (Verified Allergy, Intermediate, rash/hives, 12/19/18) tramadol (Verified Allergy, Intermediate, rash, 12/19/18) TAPE (Verified Adverse Reaction, Mild, "LOCAL REACTION", 12/19/18) lactose (Verified Adverse Reaction, Mild, nausea/vomitting /diarrhea, 12/19/18) Objective Physical Examination Examination GENERAL APPEARANCE: She was sleeping when I entered room, reports mild dis comfort secondary to nausea. SKIN: Warm and dry. HEENT: Normocephalic, atraumatic. [place] palpebral conjunctiva, anicteric sclerae. Lips and mucosa appear mildly dry. LUNGS: Clear to auscultation bilaterally. No wheezing appreciated. HEART: No chest wall abnormalities. Regular rate and rhythm with no murmurs appreciated. ABDOMEN: Abdomen is minimally distended, soft, no point tenderness but has some mild discomfort with deep palpation here on the periumbilical area extending left upper quadrant, right lower quadrant without guarding. EXTREMITIES: Extremities have no deformities. No edema identified. Vital Signs Vital Signs Date Time Temp Pulse Resp B/P (MAP) Pulse Ox O2 Delivery O2 Flow Rate FiO2 01/15/19 10:00 97.5 84 16 135/84 (101) 97 01/15/19 01:32 Room Air I&Os I&O- Last 24 Hours up to 6 AM 01/15/19 06:00 Intake Total 1000 ml Balance 1000 ml Laboratory Data Labs 24H Laboratory Tests 2 01/14/19 21:05: Immature Granulocyte % (Auto) 0.2, White Blood Count 10.6H, Red Blood Count 4.87, Hemoglobin 13.7, Hematocrit 41.3, Mean Corpuscular Volume 84.8, Mean Corpuscular Hemoglobin 28.1, Mean Corpuscular Hemoglobin Concent 33.2, Red Cell Distribution Width 13.4, Platelet Count 279, Neutrophils (%) (Auto) 54.9, Lymphocytes (%) (Auto) 32.4, Monocytes (%) (Auto) 7.9H, Eosinophils (%) (Auto) 4.1H, Basophils (%) (Auto) 0.5, Neutrophils # (Auto) 5.8, Lymphocytes # (Auto) 3.4, Monocytes # (Auto) 0.8, Eosinophils # (Auto) 0.4, Basophils # (Auto) 0.1, Nucleated Red Blood Cells % (auto) 0.0, Prothrombin Time 13.4, Prothromb Time International Ratio 1.05, Activated Partial Thromboplast Time 29.1, Anion Gap 10, Glomerular Filtration Rate > 60.0, Calcium Level 9.1, Aspartate Amino Transf (AST/SGOT) 12, Alanine Aminotransferase (ALT/SGPT) 20, Alkaline Phosphatase 57, Total Bilirubin 0.3, Direct Bilirubin 0.1, Total Protein 7.0, Albumin 3.7, Albumin/Globulin Ratio 1.12, Lipase 188 01/14/19 21:06: Urine Appearance HAZY, Urine Color YELLOW, Urine pH 6.0, Urine Specific [place] 1.020, Urine Protein NEGATIVE, Urine Glucose (UA) NEGATIVE, Urine Ketones NEGATIVE, Urine Urobilinogen 0.2, Urine Bilirubin NEGATIVE, Urine Leukocyte Esterase NEGATIVE, Urine Blood 2+H, Urine Nitrite POSITIVE, Urine WBC (Auto) 3, Urine RBC (Auto) 6H, Urine Hyaline Casts (Auto) 0, Urine Bacteria (Auto) 1+H, Urine Squamous Epithelial Cells 2, Urine Mucus (Auto) SMALL, Urine Sperm (Auto) 01/15/19 09:55: Immature Granulocyte % (Auto) 0.4, White Blood Count 8.4, Red Blood Count 4.80, Hemoglobin 13.9, Hematocrit 50.4H, Mean Corpuscular Volume 105.0H, Mean Corpuscular Hemoglobin 29.0, Mean Corpuscular Hemoglobin Concent 27.6L, Red Cell Distribution Width 12.8, Platelet Count 308, Neutrophils (%) (Auto) 64.7, Lymphocytes (%) (Auto) 24.9, Monocytes (%) (Auto) 6.7H, Eosinophils (%) (Auto) 2.7, Basophils (%) (Auto) 0.6, Neutrophils # (Auto) 5.5, Lymphocytes # (Auto) 2.1, Monocytes # (Auto) 0.6, Eosinophils # (Auto) 0.2, Basophils # (Auto) 0.1, Nucleated Red Blood Cells % (auto) 0.0 CBC/BMP Laboratory Tests 01/14/19 21:05 Red Blood Count 4.87, Mean Corpuscular Volume 84.8, Mean Corpuscular Hemoglobin 28.1, Mean Corpuscular Hemoglobin Concent 33.2, Red Cell Distribution Width 13.4, Neutrophils (%) (Auto) 54.9, Lymphocytes (%) (Auto) 32.4, Monocytes (%) (Auto) 7.9 H, Eosinophils (%) (Auto) 4.1 H, Basophils (%) (Auto) 0.5, Neutrophils # (Auto) 5.8, Lymphocytes # (Auto) 3.4, Monocytes # (Auto) 0.8, Eosinophils # (Auto) 0.4, Basophils # (Auto) 0.1 01/15/19 09:55 Red Blood Count 4.80, Mean Corpuscular Volume 105.0 H, Mean Corpuscular Hemog lobin 29.0, Mean Corpuscular Hemoglobin Concent 27.6 L, Red Cell Distribution Width 12.8, Neutrophils (%) (Auto) 64.7, Lymphocytes (%) (Auto) 24.9, Monocytes (%) (Auto) 6.7 H, Eosinophils (%) (Auto) 2.7, Basophils (%) (Auto) 0.6, Neutrophils # (Auto) 5.5, Lymphocytes # (Auto) 2.1, Monocytes # (Auto) 0.6, Eosinophils # (Auto) 0.2, Basophils # (Auto) 0.1 Microbiology Microbiology 01/14/19 Urine Culture, Received Pending Impression Colitis, enterocolitis Most likely infectious in nature. This does not seem to be related to the surgery that she had 4 weeks ago. She initially was complaining of diarrhea but has not had any bowel movements she's been near so we did not have any stool studies available. She is now complaining of nausea. Abdominal exam is pretty benign. Reviewed the CT images which shows some faint mucosal edema on the left colon extending from the anastomosis to the splenic flexure. No signs of perfo ration, and new diverticulitis. Continue with IV fluid hydration. Her labs looked more hemoconcentrated this morning which reflects probably the vomiting. I will increase her IV fluids. I'll recheck later on today if she is improved and is able to tolerate oral diet. She is currently not on any antibiotics. She does not have any leukocytosis. Most of this is self-limiting and would just need supportive treatment. Would hold off any antibiotic treatment for now. Plan / VTE VTE Prophylaxis Ordered?: Yes ELIAZAR CAMERON MD Jan 15, 2019 13:04
[2019-01-15 14:00] VITALS: BP 121/79
[2019-01-15] MEDS: POTASSIUM CHLORIDE 10 MEQ SR TABLET PO SCH (14:20)
[2019-01-15] MEDS: NORCO, ANEXSIA 5/325MG TABLET (HYDROcodone/ACETAMINOPHEN) PO PRN ×2 (17:05→21:06)
--- NOTE | 2019-01-15 17:22 | HPE ---
DATE OF ADMISSION: 01/14/2019 ADMITTING DIAGNOSIS: Abdominal pain and diarrhea. HISTORY OF PRESENT ILLNESS: The patient is a 38-year-old woman who had undergone a sigmoid colectomy with coloproctostomy on December 19 for treatment of recurring episodes of diverticulitis. She had done well with her surgery and was discharged within an appropriate time frame. She had been having some problems apparently with very irregular bowel habits and some constipation and had been advised to use some stool softeners and some milk of magnesia as necessary after the surgery. The patient reports that early on January 14 she had a formed but somewhat soft bowel movement. This was followed by additional bowel movements that were initially loose and progressed to nothing much more than yellow liquid. She reported having some nausea but had no vomiting. She reported feeling very tired and overall just malaise. The patient had last seen her surgeon on January 10 and is not due to follow up again until early January. Along with her loose stools and diarrhea she had some significant crampy pain and for this reason presented to the emergency department for evaluation. In the emergency department she had a CT scan of the abdomen and pelvis with contrast which was interpreted by the teleradiologist as showing her to be status post a partial colectomy with the descending colon demonstrating a thickened wall with some pericolonic inflammation suggestive of some acute or subacute colitis. I was therefore consulted by the emergency department for evaluation. MEDICATIONS: The patient reports the following usual medications: - gabapentin 300 mg by mouth three times a day - tizanidine 8 mg by mouth daily at bedtime - meloxicam 15 mg by mouth daily at bedtime - docusate sodium 100 mg by mouth twice daily - EpiPen as needed for allergic reaction - cetirizine 10 mg by mouth daily - lidocaine patch 5% applied topically to the back daily - pantoprazole 40 mg by mouth daily at bedtime - venlafaxine 75 mg by mouth daily at bedtime ALLERGIES: Allergies are reported to PENICILLIN, LACTOSE, TRAMADOL and TAPE, as well as LATEX which she has reported as an anaphylactic reaction. PAST SURGICAL HISTORY: Surgical history is significant for: 1. Tonsillectomy. 2. She had an umbilical hernia repair. 3. She has undergone cholecystectomy. 4. She has had several colonoscopies. 5. She underwent a bladder sling procedure in September 2016. 6. She has had an ovarian cystectomy. 7. She has had a hysterectomy. 8. She underwent her sigmoid colectomy on December 19, 2018. PAST MEDICAL HISTORY: Medical history is significant for: 1. Chronic back pain. She reports this as being related to bulging disks associated with some sort of working injury. 2. She has a history of recurrent diverticulitis for which she underwent her recent partial colectomy. 3. She describes a history of fibromyalgia. 4. She describes irritable bowel syndrome with variable bowel habits before her surgery. 5. She does have a history of migraine headaches and seizures, though her most recent seizure was years ago. 6. She has no history of deep venous thrombosis (DVT) or pulmonary embolus. 7. She does have a history of some hypertension and hypercholesterolemia. 8. She has a history of asthma. 9. She does have some gastroesophageal reflux. 10. She also reports a history of depression. FAMILY HISTORY: Her father had hypertension and heart disease with cancer of the kidney. The mother has no active medical problems. REVIEW OF SYSTEMS: The patient has no recent chest pain or palpitations. She denies cough or wheezing. She has had no dysuria or hematuria. Bowel habits are as reported in history of present illness. The remainder of the review of systems is negative. PHYSICAL EXAMINATION: Vital signs: In the emergency department her most recent vital signs show a temperature of 98.4, pulse of 78, blood pressure of 147/83. General: She is alert and oriented. She is lying quietly on the hospital stretcher. Skin: Warm and dry. HEENT: Mucous membranes are moist. Neck: Supple. Heart: Exam shows a regular rate and rhythm. Lungs: The lungs are clear. Abdomen: The abdomen is nondistended. She has approximately five small trocar site type incisions that appear to be healing well with no sign of infection or hematoma. She has bowel sounds present on auscultation of the abdomen. There is no tympany to percussion and no significant tenderness to percussion. The abdomen is soft throughout without significant mass. Extremities: Without edema and she has palpable radial and pedal pulses. There is no calf tenderness. LABORATORY STUDIES: Her laboratory studies include a CBC that shows a white count of 11, hemoglobin of 14, hematocrit of 41 and platelet count of 279,000. Differential count shows 55% neutrophils, 32% lymphocytes and 8% monocytes. Her chemistry profile showed her potassium to be Very slightly low at 3.3 but her other electrolytes were normal. BUN is 8 with creatinine 0.9 and glucose is 104. Liver function tests are normal with a normal lipase. PT/PTT and INR are normal and her urinalysis shows specific gravity 1.020 with 2+ blood, positive nitrite, but a microscopic showing three white cells and six red cells. IMAGING: CT scan done in the emergency department was reviewed. She has an anastomosis in the pelvis. There is no sign of abscess and no free fluid seen. She has some clips in the gallbladder bed. Her anastomosis is well seen. There is some mild thickening in her descending colon with again some mild changes of inflammation, particularly around the colon just proximal to her anastomosis. There is no evident abdominal wall hernia or hematoma. IMPRESSION: Severe abdominal cramping with diarrhea of unclear etiology. This follows a recent sigmoid colectomy for recurrent diverticulitis. Additional diagnoses include chronic back pain, fibromyalgia, gastroesophageal reflux disease, hypertension, asthma, history of seizures and depression. PLAN: Because the patient presented with severe crampy pain and diarrhea, I will place her on observation to see if she will have continuing symptoms. She has been having irregular bowel habits both before and after her recent colectomy. She does think there was some blood in her bowel movement earlier today but the subsequent looser stools were just yellowish in color. She is just under one month postop from her colectomy. She certainly has no need for any surgical intervention at this time. There is no sign of obstruction to suggest the need for a nasogastric tube. I will allow her some sips of clear liquids but will continue some maintenance intravenous fluid. Will obtain a repeat CBC with a differential later in the morning. It may be that she could be discharged later in the day. I will order also a gastrointestinal (GI) panel to look for evidence of other gastrointestinal issues that could account for her symptoms.
[2019-01-15 20:00] VITALS: BP 131/78
[2019-01-15] MEDS: tiZANidine 4 MG TAB PO SCH (21:05)
[2019-01-15] MEDS: VENLAFAXINE 37.5 MG TAB PO SCH (21:06)
[2019-01-16] VITALS: BP_SYST 106; BP_SYST 95; BP_DIAS 55; BP_DIAS 68
[2019-01-16 04:00] VITALS: BP 119/74
[2019-01-16 06:14] LABS: BASO % 0.5 % (0.0-1.0); EOS # 0.5 10^3/uL (0.0-0.5); EOS % 5.9 % (0.0-3.0); HEMATOCRIT 39.5 % (36.0-47.0); LYMPH # 2.8 10^3/uL (1.5-5.0); LYMPH % 35.3 % (24.0-44.0); MEAN CORPUSCULAR HEMOGLOBIN 28.7 pg (27.0-33.0); MEAN CORPUSCULAR HGB CONC 32.9 g/dl (32.0-36.5); MEAN CORPUSCULAR VOLUME 87.2 fl (80.0-96.0); MONO # 0.6 10^3/uL (0.0-0.8); MONO % 7.4 % (0.0-5.0); NEUTROPHILS # 4.1 10^3/uL (1.5-8.5); NEUTROPHILS % 50.6 % (36.0-66.0); PLATELET COUNT, AUTOMATED 258 10^3/uL (150-450); RED BLOOD COUNT 4.53 10^6/uL (4.00-5.40)
[2019-01-16 06:45] LABS: BLOOD UREA NITROGEN 6 MG/DL (7-18); CARBON DIOXIDE LEVEL 31 MEQ/L (21-32); CHLORIDE LEVEL 106 MEQ/L (98-107); CREATININE FOR GFR 0.76 MG/DL (0.55-1.30); GLOMERULAR FILTRATION RATE > 60.0 (>60); GLUCOSE, FASTING 83 MG/DL (70-100); POTASSIUM SERUM 3.9 MEQ/L (3.5-5.1); SODIUM LEVEL 141 MEQ/L (136-145)
[2019-01-16 08:00] VITALS: BP 117/60
[2019-01-16] MEDS: CETIRIZINE (ZyrTEC) 10 MG TAB PO SCH (08:04)
[2019-01-16] MEDS: POTASSIUM CHLORIDE 10 MEQ SR TABLET PO SCH (08:04)
[2019-01-16] MEDS: GABAPENTIN 300 MG CAP PO SCH ×3 (08:04→19:41)
[2019-01-16] MEDS: LR 1,000 ML IV SCH (08:04)
[2019-01-16] MEDS: ONDANSETRON 4MG/2ML VIAL (J2405) IV PRN ×2 (11:52→19:52)
[2019-01-16 12:00] VITALS: BP 115/73
[2019-01-16] MEDS: NORCO, ANEXSIA 5/325MG TABLET (HYDROcodone/ACETAMINOPHEN) PO PRN (15:34)
[2019-01-16 16:00] VITALS: BP 122/71
[2019-01-16] MEDS: VANCOMYCIN ORAL SOL 250MG/5ML ORAL SYRINGE PO SCH (19:41)
[2019-01-16 19:42] VITALS: BP 132/84
[2019-01-16] MEDS: VENLAFAXINE 37.5 MG TAB PO SCH (19:42)
[2019-01-16] MEDS: tiZANidine 4 MG TAB PO SCH (19:42)
[2019-01-16] MEDS: MORPHINE 4 MG/ML 1ML VIAL/SYRINGE (J2270) IV PRN (19:52)
[2019-01-17 05:41] VITALS: BP 118/72
[2019-01-17] MEDS: VANCOMYCIN ORAL SOL 250MG/5ML ORAL SYRINGE PO SCH ×3 (05:44→11:09)
[2019-01-17] MEDS: ONDANSETRON 4MG/2ML VIAL (J2405) IV PRN (05:46)
[2019-01-17 08:00] VITALS: BP 118/72
[2019-01-17] MEDS: POTASSIUM CHLORIDE 10 MEQ SR TABLET PO SCH (08:48)
[2019-01-17] MEDS: CETIRIZINE (ZyrTEC) 10 MG TAB PO SCH (08:48)
[2019-01-17] MEDS: GABAPENTIN 300 MG CAP PO SCH (08:49)
[2019-01-17] MEDS ORDERED: FIRV50SO PO (09:30)
== END 2019-01-17 11:42 | disposition home or self-care (01) ==
LOC: M ED 20:29 → M ED INP 20:30 → M MS4PR 01-15 08:14
PROVIDERS: ADMIT Surgery; ATTEND Surgery
DX: A04.72 Enterocolitis due to Clostridium difficile, not specified as recurrent (principal); B96.20 Unspecified Escherichia coli [E. coli] as the cause of diseases classified elsewhere; R19.7 Diarrhea, unspecified; R11.10 Vomiting, unspecified; I10 Essential (primary) hypertension; K21.9 Gastro-esophageal reflux disease without esophagitis; J45.909 Unspecified asthma, uncomplicated; M79.7 Fibromyalgia; F32.9 Major depressive disorder, single episode, unspecified; Z90.49 Acquired absence of other specified parts of digestive tract; Z88.0 Allergy status to penicillin; E73.9 Lactose intolerance, unspecified; Z91.040 Latex allergy status; Z88.8 Allergy status to other drugs, medicaments and biological substances
CPT/HCPCS: 36415; 74177; 80048; 80076; 81001; 83690; 85025; 85610; 85730; 87088; 87186; 87507; 96361; 96374; 96375; 96376; 99284; J2270; J2405; J2765; Q9963; Q9967

== ENCOUNTER 2019-09-26 10:39 | Outpatient (RCR) | payer BC ==
[~2019-09-26 10:39] MED LIST changes: +CETI10TA8 PO; +DOCU100C17 PO; +EPIN0.3I11 IM; +FIRV50SO PO; +LIDO1PAD TOP; +MOBI4TAB PO; +PANT-23 PO; +TIZA4CAP PO; +VENL75TA2 PO; +ZONI25CA13 PO
== END 2019-09-29 ==
LOC: M PT 10:39
PROVIDERS: ATTEND Nurse Practitioner Family
DX: Z51.89 Encounter for other specified aftercare (principal); M25.551 Pain in right hip; M25.552 Pain in left hip; M25.511 Pain in right shoulder; M25.512 Pain in left shoulder

== ENCOUNTER 2019-10-28 10:45 | Outpatient (RCR) | payer BC | END 2019-10-29 | LOC: M PT 10:45 | PROVIDERS: ATTEND Nurse Practitioner Family | DX: Z51.89 Encounter for other specified aftercare (principal); M25.511 Pain in right shoulder; M25.551 Pain in right hip; M25.552 Pain in left hip ==